=== PATIENT | male | born 1975 | race Two or more races ===

== ENCOUNTER 2019-03-29 14:14 | Emergency (ER) | payer MEDICAID ==
[~2019-03-29] VITALS: Ht 180.3 cm; Wt 97.5 kg
[2019-03-29] MEDS ORDERED: SODIUM CHLORIDE 0.9% 1,000 ML IVB ONE (14:53)
[2019-03-29 15:30] LABS: Basophils # (auto) 0.1 uL; Basophils % (auto) 0.7 % (0.0-2.0); Eosinophils # (auto) 0.4 uL; Eosinophils % (auto) 5.5 % (0.0-7.0); Hematocrit 45.4 % (41.0-53.0); Hemoglobin 15.2 g/dL (13.5-17.5); Lymphocytes # (auto) 2.2 uL; Lymphocytes % (auto) 29.1 % (10.0-50.0); Mean Corpuscular Hemoglobin 32.2 pg (28.0-32.0); Mean Corpuscular Hgb Conc. 33.6 g/dL (32.0-36.0); Monocytes # (auto) 0.5 uL; Monocytes % (auto) 7.2 % (0.0-12.0); Neutrophils # (auto) 4.3 uL; Neutrophils % (auto) 57.5 % (37.0-80.0); Nucleated Red Blood Cells % 0.1 %; Platelet Count (auto) 234 10^3/uL (140-450); Red Blood Cells 4.73 10^6/uL (4.5-5.90); Red Cell Distribution Width 13.3 % (11.8-14.3); White Blood Cell 7.5 10^3/uL (4.4-10.8)
[2019-03-29 15:53] LABS: Potassium 3.4 mmol/L (3.5-5.1)
[2019-03-29 15:54] LABS: INR < 0.93 (0.9-1.15); Partial Thromboplastin Time 22.3 sec (23.64-32.05)
[2019-03-29 16:03] LABS: Albumin 3.7 g/dL (3.4-5.0); BUN/Creatinine Ratio 20.4; Bilirubin, Direct 0.1 mg/dL (0-0.2); Bilirubin, Total 0.4 mg/dL (0.2-1.0); Calcium 8.5 mg/dL (8.5-10.1); Magnesium 2.4 mg/dL (1.6-2.6); Total Protein 7.4 g/dL (6.4-8.2)
[2019-03-29 16:10] LABS: Salicylate 1.7 mg/dL (2.8-20.0)
[2019-03-29 16:14] LABS: Acetaminophen < 2.0 ug/mL (10-30)
[2019-03-29 17:00] VITALS: BP 131/96
[2019-03-29] MEDS ORDERED: POTASSIUM CHL 20 Meq TABLET PO ONE (17:15)
[2019-03-29 17:59] LABS: Urine Bacteria NONE SEEN /hpf (None Seen); Urine Blood Negative /uL (Negative); Urine Hyaline Cast FEW /lpf (0 - 2); Urine Mucus FEW (None Seen); Urine WBC 1 /hpf (0 - 3)
[2019-03-29 19:08] LABS: Amphetamine Screen, Urine POSITIVE (NEGATIVE); Barbiturate Scree,Urine NEGATIVE (NEGATIVE); Benzodiazephine Screen, Urine NEGATIVE (NEGATIVE); Cannabinoid Screen, Urine NEGATIVE (NEGATIVE); Cocaine Screen, Urine NEGATIVE (NEGATIVE); Opiate Scree,Urine NEGATIVE (NEGATIVE); Phencyclidine Screen, Urine POSITIVE (NEGATIVE)
== END 2019-03-29 19:00 | disposition home or self-care (01) ==
LOC: ER 14:14 → EDBD 14:14 → ER 19:00
DX: F15.10 Other stimulant abuse, uncomplicated (principal); F12.10 Cannabis abuse, uncomplicated; F10.10 Alcohol abuse, uncomplicated; E87.6 Hypokalemia; F17.210 Nicotine dependence, cigarettes, uncomplicated; Y90.9 Presence of alcohol in blood, level not specified
CPT/HCPCS: 36415; 70450; 71045; 80053; 80076; 80307; 80320; 80329; 81001; 82550; 83735; 85025; 85610; 85730; 93005; 94761

== ENCOUNTER 2019-07-01 21:01 | Emergency (ER) | payer SELFPAY ==
[~2019-07-01] VITALS: Ht 180.3 cm; Wt 90.7 kg
[2019-07-01 21:08] VITALS: BP 131/89
== END 2019-07-01 21:19 ==
LOC: ER 21:05
DX: Z02.89 Encounter for other administrative examinations (principal); F17.210 Nicotine dependence, cigarettes, uncomplicated; F12.10 Cannabis abuse, uncomplicated; F15.10 Other stimulant abuse, uncomplicated

== ENCOUNTER 2020-12-28 10:31 | Emergency (ER) | payer MEDICAID | END 2020-12-28 10:59 | disposition left against medical advice (07) | LOC: ER 10:31 | DX: F41.9 Anxiety disorder, unspecified (principal); F17.210 Nicotine dependence, cigarettes, uncomplicated ==

== ENCOUNTER 2021-01-15 02:45 | Emergency (ER) | payer MEDICAID ==
[~2021-01-15] VITALS: Ht 185.4 cm; Wt 102.1 kg
[2021-01-15 06:03] VITALS: BP 140/82
== END 2021-01-15 04:59 | disposition home or self-care (01) ==
LOC: ER 02:45 → EDBD 02:45 → ER 04:59
DX: F10.121 Alcohol abuse with intoxication delirium (principal); F17.210 Nicotine dependence, cigarettes, uncomplicated; Y90.0 Blood alcohol level of less than 20 mg/100 ml
CPT/HCPCS: 36415; 80320

== ENCOUNTER 2021-02-13 22:32 | Emergency (ER) | payer MEDICAID ==
[~2021-02-13] VITALS: Ht 180.3 cm; Wt 83.9 kg
[2021-02-13 23:06] VITALS: BP 100/67
[2021-02-14] MEDS ORDERED: cefTRIAXone SOD 1,000 MG VL IM ONE (02:00)
[2021-02-14] MEDS ORDERED: KETOROLAC TROMETH 60MG/2ML VIAL IM ONE (02:00)
== END 2021-02-14 02:55 | disposition home or self-care (01) ==
LOC: ER 22:32
DX: S62.112A Displaced fracture of triquetrum [cuneiform] bone, left wrist, initial encounter for closed fracture (principal); S51.812A Laceration without foreign body of left forearm, initial encounter; L03.114 Cellulitis of left upper limb; F17.210 Nicotine dependence, cigarettes, uncomplicated; Z59.0 Homelessness; X58.XXXA Exposure to other specified factors, initial encounter; Y93.89 Activity, other specified; Y92.89 Other specified places as the place of occurrence of the external cause; Y99.8 Other external cause status
CPT/HCPCS: 73200; 96372; 99284; J0696; J1885

== ENCOUNTER → 2022-12-19 | Emergency (ER) | payer MEDICAID ==
[~2022-12-19] VITALS: Ht 180.3 cm; Wt 80.0 kg
[2022-12-19 06:14] VITALS: BP 138/88
== END | disposition left against medical advice (07) ==
LOC: ER 06:14
DX: M79.646 Pain in unspecified finger(s) (principal); Z53.21 Procedure and treatment not carried out due to patient leaving prior to being seen by health care provider

== ENCOUNTER 2023-04-23 22:27 | Emergency (ER) | payer MEDICAID ==
[~2023-04-23] VITALS: Ht 180.3 cm; Wt 77.0 kg
[2023-04-23] MEDS ORDERED: ONDANSETRON HCL 4 MG/2 ML VIAL IV ONE (23:30)
[2023-04-23 23:46] VITALS: TEMP 98
[2023-04-24 02:16] LABS: Basophils # (auto) 0.1 10 ^3/uL (0-0.2); Basophils % (auto) 0.8 % (0.0-2.0); Eosinophils # (auto) 0.1 10 ^3/uL (0-0.8); Hematocrit 44.2 % (41.0-53.0); Hemoglobin 14.5 g/dL (13.5-17.5); Lymphocytes # (auto) 1.1 10 ^3/uL (0.4-5.4); Lymphocytes % (auto) 9.1 % (10.0-50.0); Mean Corpuscular Hemoglobin 31.5 pg (28.0-32.0); Mean Corpuscular Hgb Conc. 32.8 g/dL (32.0-36.0); Mean Corpuscular Volume 96.3 fL (80.0-100.0); Monocytes # (auto) 0.4 10 ^3/uL (0-1.3); Monocytes % (auto) 3.2 % (0.0-12.0); Neutrophils # (auto) 10.3 10 ^3/uL (1.6-8.6); Neutrophils % (auto) 85.9 % (37.0-80.0); Nucleated Red Blood Cells % 0.1 %; Red Blood Cells 4.59 10^6/uL (4.5-5.90); Red Cell Distribution Width 14.3 % (11.8-14.3)
[2023-04-24 02:35] LABS: Alanine Aminotransferase 26 U/L (7-40); Albumin 4.2 g/dL (3.2-4.8); Alkaline Phosphatase 74 U/L (46-116); Anion Gap 7 (5-15); Aspartate Aminotransferase 27 U/L (13-40); BUN/Creatinine Ratio 12.9 (10.0-20.0); Bilirubin, Total 0.4 mg/dL (0.2-1.0); Blood Urea Nitrogen 13 mg/dL (9-23); Calcium 9.1 mg/dL (8.7-10.4); Carbon Dioxide 25 mmol/L (20-30); Chloride 109 mmol/L (98-107); Glucose 95 mg/dL (74-106); Sodium 141 mmol/L (136-145); Total Protein 6.9 g/dL (5.7-8.2)
[2023-04-24] MEDS ORDERED: NALO4SPR2 (04:55)
[2023-04-24 05:18] VITALS: BP 126/78; PULSE 79; RESP 17; O2SAT 98
== END 2023-04-24 05:34 | disposition home or self-care (01) ==
LOC: EDBD 22:27 → ER 22:27
DX: S62.397A Other fracture of fifth metacarpal bone, left hand, initial encounter for closed fracture (principal); T40.411A Poisoning by fentanyl or fentanyl analogs, accidental (unintentional), initial encounter; F17.210 Nicotine dependence, cigarettes, uncomplicated; F10.90 Alcohol use, unspecified, uncomplicated; F15.90 Other stimulant use, unspecified, uncomplicated; W05.1XXA Fall from non-moving nonmotorized scooter, initial encounter; Y93.89 Activity, other specified; Y92.89 Other specified places as the place of occurrence of the external cause; Y99.8 Other external cause status; Y90.0 Blood alcohol level of less than 20 mg/100 ml
CPT/HCPCS: 36415; 70450; 71045; 73130; 80053; 84484; 85025; 93005; 96374; 99285; J2405

== ENCOUNTER 2024-08-26 18:45 | Emergency (ER) | payer MEDICAID ==
[~2024-08-26] VITALS: Ht 180.3 cm; Wt 101.2 kg
[~2024-08-26 18:45] MED LIST: NALO4SPR2
--- NOTE | 2024-08-26 19:17 | ED.PDOC ---
History of Present Illness HPI Comments 49 y/o M with PMHX of HTN and HLD presents to the ED for CC of withdrawals. Patient states, that he believes he might be experiencing a withdrawal episode from alcohol and methamphetamines. Patient relays that the last time he consumed alcohol and illicit street drugs was today (08/26/24). Patient comments on having symptoms of nausea, tremors, and shortness of breath. Patient denies any known allergies. Patient denies suicidal ideation, homicidal ideation, auditory hallucinations, or visual hallucinations. No new symptoms or modifying factors at this time. Time Seen by MD: 19:00 Primary Care Provider: None Reviewed Notes: Nurses Notes, Medications, Allergies Allergies: Coded Allergies: NO KNOWN ALLERGIES (Unverified , 07/01/19) Home Meds Active Scripts Ondansetron Odt 4MG Tab (ZOFRAN PO) 4 Mg Tb, 4 MG PO Q8HP PRN for 5 Days, #15 TAB ODT TAB-DISSOLVE IN MOUTH, THEN SWALLOW Prov:DARRIUS BHATT MD 08/26/24 Naloxone HCl (Narcan) 4 Mg/0.1 Ml Spr, 4 MG NA DAILY PRN for 4 Days, #4 SPRAY 2 Refills Prov:JULIANA QUINONEZ DO 04/24/23 Information Source: Patient Mode of Arrival: Ambulatory Severity: Mild Timing: Hours Duration: Since onset Prehospital treatment: None Past Medical History PAST MEDICAL HISTORY: Denies Surgical History: Denies all surgeries Family History Family History: Unknown Social History Smoker: Cigarettes, Less Than 1 Pack/Day Alcohol: Heavy, Pt Confused Drugs: Marijuana, Methamphetamine, Other (PCP) Lives In: Home, Unobtainable Constitutional: denies: chills, diaphoresis, fatigue, fever, malaise, sweats, weakness, others EENTM: denies: blurred vision, double vision, ear bleeding, ear discharge, ear drainage, ear pain, ear ringing, eye pain, eye redness, hearing loss, mouth pain, mouth swelling, nasal discharge, nose bleeding, nose congestion, nose pain, photophobia, tearing, throat pain, throat swelling, voice changes, others Respiratory: reports: shortness of breath; denies: cough, hemoptysis, orthopnea, SOB at rest, SOB with excertion, stridor, wheezing, others Cardiovascular: denies: chest pain, dizzy spells, diaphoresis, Dyspnea on exertion, edema, irregular heart beat, left arm pain, lightheadedness, palpitations, PND, syncope, others Gastrointestinal: reports: nausea; denies: abdomen distended, abdominal pain, blood streaked bowels, constipated, diarrhea, dysphagia, difficulty swallowing, hematemesis, melena, poor appetite, poor fluid intake, rectal bleeding, rectal pain, vomiting, others Genitourinary: denies: burning, dysuria, flank pain, frequency, hematuria, incontinence, penile discharge, penile sore, pain, testicle pain, testicle swelling, urgency, others Neurological: reports: tremors; denies: dizziness, fainting, headache, left sided numbness, left sided weakness, numbness, paresthesia, pre-existing deficit, right sided numbness, right sided weakness, seizure, speech problems, tingling, weakness, others Musculoskeletal: denies: back pain, gout, joint pain, joint swelling, muscle pain, muscle stiffness, neck pain, others Integumetry: denies: bruises, change in color, change in hair/nails, dryness, laceration, lesions, lumps, rash, wounds, others Allergic/Immunocompromised: denies: Difficulty Healing, Frequent Infections, Hives, Itching, others Hematologic/Lymphatic: denies: anemia, blood clots, easy bleeding, easy bruising, swollen glands, others Endocrine: denies: excessive hunger, excessive sweating, excessive thirst, excessive urination, flushing, intolerance to cold, intolerance to heat, unexp lained weight gain, unexplained weight loss, others Psychiatric: denies: anxiety, bipolar disorder, depression, hopeless, panic disorder, schizophrenia, sleepless, suicidal, others All Other Systems: Reviewed and Negative Physical Exam General Appearance: No Apparent Distress HEENT: Normal ENT Inspection, Pharynx Normal, TMs Normal Neck: Full Range of Motion, Non-Tender, Normal, Normal Inspection Respiratory: Chest Non-Tender, Lungs Clear, No Accessory Muscle Use, No Respiratory Distress, Normal Breath Sounds Cardiovascular: No Edema, No JVD, No Murmur, No Gallop, Normal Peripheral Pulses, Regular Rate/Rhythm Breast Exam: Deferred Gastrointestinal: No Organomegaly, Non Tender, No Pulsatile Mass, Normal Bowel Sounds, Soft Genitalia: Deferred Pelvic: Deferred Rectal: Deferred Extremities: No calf tenderness, Normal capillary refill, Normal inspection, Normal range of motion, Non-tender, No pedal edema Musculoskeletal : Apperance: Normal Neurologic: Alert, primary montessori teacher II-XII nml as Tested, No Motor Deficits, Normal Affect, Normal Mood, No Sensory Deficits Cerebellar Function: Normal Reflexes: Normal Skin: Dry, Normal Color, Warm Lymphatic: No Adenopathy Was a procedure done? Was a procedure done?: No Differential Dx Considerations may include: ILLICIT DRUG WITHDRAWAL X-Ray, Labs, Meds, VS Vital Signs Date Time Temp Pulse Resp B/P (MAP) Pulse Ox O2 Delivery O2 Flow Rate FiO2 08/26/24 19:09 98.0 102 18 147/87 (107) 97 Lab Test 08/26/24 19:18 08/26/24 19:08 Range/Units White Blood Count 10.4 4.4-10.8 10^3/uL Red Blood Count 4.88 4.5-5.90 10^6/uL Hemoglobin 15.3 13.5-17.5 g/dL Hematocrit 45.5 41.0-53.0 % Mean Corpuscular Volume 93.3 80.0-100.0 fL Mean Corpuscular Hemoglobin 31.5 28.0-32.0 pg Mean Corpuscular Hemoglobin Concent 33.7 32.0-36.0 g/dL Red Cell Distribution Width 13.9 11.8-14.3 % Platelet Count 315 140-450 10^3/uL Mean Platelet Volume 6.9 6.9-10.8 fL Neutrophils (%) (Auto) 62.8 37.0-80.0 % Lymphocytes (%) (Auto) 24.8 10.0-50.0 % Monocytes (%) (Auto) 9.9 0.0-12.0 % Eosinophils (%) (Auto) 1.3 0.0-7.0 % Basophils (%) (Auto) 1.2 0.0-2.0 % Neutrophils # (Auto) 6.5 1.6-8.6 10 ^3/uL Lymphocytes # (Auto) 2.6 0.4-5.4 10 ^3/uL Monocytes # (Auto) 1.0 0-1.3 10 ^3/uL Eosinophils # (Auto) 0.1 0-0.8 10 ^3/uL Basophils # (Auto) 0.1 0-0.2 10 ^3/uL Nucleated Red Blood Cells 0.2 % Sodium Level 138 136-145 mmol/L Potassium Level 4.6 3.5-5.1 mmol/L Chloride Level 101 98-107 mmol/L Carbon Dioxide Level 25 20-31 mmol/L Anion Gap 12 5-15 Blood Urea Nitrogen 22 9-23 mg/dL Creatinine 1.17 0.700-1.30 mg/dL Glomerular Filtration Rate Calc 75 >90 mL/min BUN/Creatinine Ratio 18.8 10.0-20.0 Serum Glucose 70 L 74-106 mg/dL Calcium Level 10.3 8.7-10.4 mg/dL Plasma/Serum Blood Alcohol 3.7 <10 mg/dL Urine Opiates Screen Neg NEGATIVE Urine Fentanyl Screen Neg NEGATIVE Urine Barbiturates Screen Neg NEGATIVE Urine Phencyclidine Screen Pos NEGATIVE Urine Amphetamines Screen Pos NEGATIVE Urine Benzodiazepines Screen Neg NEGATIVE Urine Cocaine Screen Pos NEGATIVE Urine Cannabinoids Screen Neg NEGATIVE The urine tox is positive for PCP, cocaine and methamphetamines The CBC and chemistry panel are within normal limits The patient was being discharged and will follow up with the primary care doctor The patient will return to the emergency department's condition worsens. Time of 1ST Reevaluation: 19:30 Reevaluation 1ST: Unchanged Patient Education/Counseling: Diagnosis, Treatment, Prognosis, Need For Follow Up Family Education/Counseling: No Family Present Departure 1 Departure Time of Disposition: 21:28 Impression: Primary Impression: Polysubstance abuse Additional Impression: Alcohol abuse Disposition: 01 HOME / SELF CARE / HOMELESS Condition: Fair e-Prescriptions Ondansetron Odt 4MG Tab (ZOFRAN PO) 4 Mg Tb 4 MG PO Q8HP PRN for 5 Days, #15 TAB ODT TAB-DISSOLVE IN MOUTH, THEN SWALLOW Prov: DARRIUS BHATT MD 08/26/24 Discharged With: Self Critical Care Note Critical Care Time?: No Stability Stability form required: No Heart Score Heart Score: Heart Score Response (Comments) Value History N/A 0 EKG N/A 0 Age N/A 0 Risk Factors N/A 0 Troponin N/A 0 Total 0 I personally scribed for DARRIUS BHATT MD ([email or web address]) on 08/26/24 at 19:17. Electronically submitted by Asiya Chacko [email or web address]). DARRIUS BHATT MD Aug 26, 2024 19:17
[2024-08-26 19:32] LABS: Basophils # (auto) 0.1 10 ^3/uL (0-0.2); Basophils % (auto) 1.2 % (0.0-2.0); Eosinophils # (auto) 0.1 10 ^3/uL (0-0.8); Eosinophils % (auto) 1.3 % (0.0-7.0); Hematocrit 45.5 % (41.0-53.0); Hemoglobin 15.3 g/dL (13.5-17.5); Lymphocytes # (auto) 2.6 10 ^3/uL (0.4-5.4); Lymphocytes % (auto) 24.8 % (10.0-50.0); Mean Corpuscular Hemoglobin 31.5 pg (28.0-32.0); Mean Corpuscular Hgb Conc. 33.7 g/dL (32.0-36.0); Mean Corpuscular Volume 93.3 fL (80.0-100.0); Monocytes % (auto) 9.9 % (0.0-12.0); Neutrophils # (auto) 6.5 10 ^3/uL (1.6-8.6); Neutrophils % (auto) 62.8 % (37.0-80.0); Nucleated Red Blood Cells % 0.2 %; Platelet Count (auto) 315 10^3/uL (140-450); Red Blood Cells 4.88 10^6/uL (4.5-5.90); Red Cell Distribution Width 13.9 % (11.8-14.3); White Blood Cell 10.4 10^3/uL (4.4-10.8)
[2024-08-26 19:44] LABS: Chloride 101 mmol/L (98-107); Potassium 4.6 mmol/L (3.5-5.1); Sodium 138 mmol/L (136-145)
[2024-08-26 19:45] LABS: Anion Gap 12 (5-15); Carbon Dioxide 25 mmol/L (20-31)
[2024-08-26 19:46] LABS: Calcium 10.3 mg/dL (8.7-10.4)
[2024-08-26 19:50] LABS: BUN/Creatinine Ratio 18.8 (10.0-20.0); Blood Urea Nitrogen 22 mg/dL (9-23)
[2024-08-26 19:51] LABS: Blood Alcohol 3.7 mg/dL (<10)
[2024-08-26 19:58] LABS: Glucose 70 mg/dL (74-106)
[2024-08-26 20:23] LABS: Cannabinoid Screen, Urine Neg (NEGATIVE)
[2024-08-26 20:27] LABS: Amphetamine Screen, Urine Pos (NEGATIVE); Barbiturate Scree,Urine Neg (NEGATIVE); Benzodiazephine Screen, Urine Neg (NEGATIVE); Cocaine Screen, Urine Pos (NEGATIVE); Opiate Scree,Urine Neg (NEGATIVE); Phencyclidine Screen, Urine Pos (NEGATIVE)
[2024-08-26] MEDS ORDERED: ZOFR4T PO (21:27)
[2024-08-27] MEDS: SODIUM CHLORIDE 0.9% 1,000 ML IV ONE (00:09)
[2024-08-27] MEDS: ONDANSETRON HCL 4 MG/2 ML VIAL IV ONE (00:10)
[2024-08-27 02:10] VITALS: BP 140/76; PULSE 85; RESP 18; TEMP 98.1; O2SAT 95
== END 2024-08-27 02:25 | disposition home or self-care (01) ==
LOC: ER 18:45
DX: F19.10 Other psychoactive substance abuse, uncomplicated (principal); F10.10 Alcohol abuse, uncomplicated; I10 Essential (primary) hypertension; E78.5 Hyperlipidemia, unspecified; F17.210 Nicotine dependence, cigarettes, uncomplicated; Z79.899 Other long term (current) drug therapy
CPT/HCPCS: 36415; 80048; 80307; 80320; 85025; 96361; 96374; 99283; J2405; J7030

== ENCOUNTER 2024-09-19 23:09 | Emergency (ER) | payer MEDICAID ==
[~2024-09-19] VITALS: Ht 180.3 cm; Wt 98.9 kg
[~2024-09-19 23:09] MED LIST changes: +ZOFR4T PO
--- NOTE | 2024-09-20 00:35 | DVH ---
XY R ANKLE 3 VIEW, INDICATION: injury/pain TECHNICAL DATA: Multiple views of the right ankle and tib fib COMPARISON: None Findings/ IMPRESSION: Comminuted fracture involving the fibular neck. Soft tissue edema around the ankle joint.
[2024-09-20] MEDS: HYDROcodone-ACET 5/325MG TAB PO ONE (02:23)
--- NOTE | 2024-09-20 02:38 | ED.PDOC ---
Back pain HPI HPI Comments PT STATES HE TWISTED HIS RIGHT TIB/FIB IN A DITCH, CAUSING HIM TO FALL. C/O RIGHT TIB/FIB, ANKLE PAIN. AND LEFT THUMB PAIN DENIES ANY OTHER PAIN OR INJURY. DENIES NUMBNESS, WEAKNESS, CHEST PAIN, SHORTNESS BREATH, DIFFICULTY BREATHING, ABDOMINAL PAIN, NAUSEA OR VOMITING Chief Complaint: Lower Extremity Time Seen by MD: 23:51 Primary Care Provider: gurpreet Reviewed Notes: Nurses Notes, Medications, Allergies Allergies: Coded Allergies: NO KNOWN ALLERGIES (Unverified , 07/01/19) Home Meds Active Scripts Ibuprofen Micronized (Ibuprofen) 800 Mg Tab, 800 MG PO TID for 7 Days, #21 TAB Prov:MARY PHILIPPE 09/20/24 Ondansetron Odt 4MG Tab (ZOFRAN PO) 4 Mg Tb, 4 MG PO Q8HP PRN for 5 Days, #15 TAB ODT TAB-DISSOLVE IN MOUTH, THEN SWALLOW Prov:DARRIUS BHATT MD 08/26/24 Naloxone HCl (Narcan) 4 Mg/0.1 Ml Spr, 4 MG NA DAILY PRN for 4 Days, #4 SPRAY 2 Refills Prov:JULIANA QUINONEZ DO 04/24/23 Information Source: Patient Mode of Arrival: Wheelchair Past Medical History PAST MEDICAL HISTORY: Denies Surgical History: Denies all surgeries Family History Family History: Reviewed,noncontributory to illness, Unknown Social History Smoker: Cigarettes, Less Than 1 Pack/Day Alcohol: Heavy, Pt Confused Drugs: Marijuana, Methamphetamine, Other Lives In: Home, Unobtainable Constitutional: denies: chills, diaphoresis, fatigue, fever, malaise, sweats, weakness, others EENTM: denies: blurred vision, double vision, ear bleeding, ear discharge, ear drainage, ear pain, ear ringing, eye pain, eye redness, hearing loss, mouth pain, mouth swelling, nasal discharge, nose bleeding, nose congestion, nose pain, photophobia, tearing, throat pain, throat swelling, voice changes, others Respiratory: denies: cough, hemoptysis, orthopnea, SOB at rest, shortness of breath, SOB with excertion, stridor, wheezing, others Cardiovascular: denies: chest pain, dizzy spells, diaphoresis, Dyspnea on exertion, edema, irregular heart beat, left arm pain, lightheadedness, palpitations, PND, syncope, others Gastrointestinal: denies: abdomen distended, abdominal pain, blood streaked bowels, constipated, diarrhea, dysphagia, difficulty swallowing, hematemesis, melena, nausea, poor appetite, poor fluid intake, rectal bleeding, rectal pain, vomiting, others Genitourinary: denies: burning, dysuria, flank pain, frequency, hematuria, incontinence, penile discharge, penile sore, pain, testicle pain, testicle swelling, urgency, others Neurological: denies: dizziness, fainting, headache, left sided numbness, left sided weakness, numbness, paresthesia, pre-existing deficit, right sided numbn ess, right sided weakness, seizure, speech problems, tingling, tremors, weakness, others Musculoskeletal: reports: others (LEFT THUMB AND RIGHT LOWER LEG PAIN SWELLING); denies: back pain, gout, joint pain, joint swelling, muscle pain, muscle stiffness, neck pain Integumetry: denies: bruises, change in color, change in hair/nails, dryness, laceration, lesions, lumps, rash, wounds, others Allergic/Immunocompromised: denies: Difficulty Healing, Frequent Infections, Hives, Itching, others Hematologic/Lymphatic: denies: anemia, blood clots, easy bleeding, easy bruising, swollen glands, others Endocrine: denies: excessive hunger, excessive sweating, excessive thirst, excessive urination, flushing, intolerance to cold, intolerance to heat, unexplained weight gain, unexplained weight loss, others Psychiatric: denies: anxiety, bipolar disorder, depression, hopeless, panic disorder, schizophrenia, sleepless, suicidal, others Physical Exam General Appearance: No Apparent Distress, Normal HEENT: Pharynx Normal Neck: Full Range of Motion, Non-Tender Respiratory: Lungs Clear, No Respiratory Distress, Normal Breath Sounds Cardiovascular: No Edema, No JVD, No Murmur, No Gallop, Normal Peripheral Pulses, Regular Rate/Rhythm Breast Exam: Deferred Gastrointestinal: No Organomegaly, Non Tender, No Pulsatile Mass, Normal Bowel Sounds, Soft Genitalia: Deferred Pelvic: Deferred Rectal: Deferred Extremities: Normal capillary refill, Normal inspection, Normal range of motion, Non-tender, No pedal edema Musculoskeletal : Location: Right Extremity Location: Fibia (PROXIMAL FIBULA WITH MODERATE TENDERNESS AND NOTED MILD TO MODERATE EDEMA WITH ECCHYMOSIS NO NOTED LESIONS, LACERATIONS, ABRASIONS OR OPEN WOUNDS. STRENGTH SENSORY MOTION INTACT POSITIVE PEDAL PULSE. GOAL WITH MILD EDEMA STRENGTH SENSORY MOTION INTACT POSITIVE PEDAL PULSE NO NO MINERVA CREPITUS OR BONY PROMINENCE. RIGHT THUMB TRACE EDEMA WITHOUT LESIONS ABRASIONS OR LACERATIONS NO ECCHYMOSIS CAP REFILL LESS THAN 3 SECONDS STRENGTH SENSORY MOTION INTACT.) Apperance: Normal Neurologic: Alert, power tong operator II-XII nml as Tested, No Motor Deficits, Normal Affect, Normal Mood, No Sensory Deficits Cerebellar Function: Normal Reflexes: Normal Skin: Dry, Normal Color, Warm Lymphatic: No Adenopathy Was a procedure done? Was a procedure done?: No Back Pain Differential Dx Differential Diagnosis: Fracture, Musculoskeletal Pain X-Ray, Labs, Meds, VS Vital Signs Date Time Temp Pulse Resp B/P (MAP) Pulse Ox O2 Delivery O2 Flow Rate FiO2 09/19/24 23:30 97.5 114 18 157/87 (110) 97 97.5 09/19/24 23:30 Room Air 09/19/24 23:30 97.5 114 18 157/87 (110) 97 Current Medications Medications (Trade) Dose Ordered Sig/Valorie Route Start Time Stop Time Status Last Admin Acetaminophen/ Hydrocodone Bitart ([place] 5/325MG Tab) 2 tab ONCE ONCE PO 09/20/24 02:15 09/20/24 02:16 DC 09/20/24 02:23 X-Ray, Labs, Meds, VS Comment X-RAY RIGHT TIB-FIB SHOWS FIBULA FRACTURE NECK COMMINUTED. SOFT TISSUE SWELLING A MID THE ANKLE. LEFT HAND THUMB NO ACUTE FINDINGS NOTED OR OSSEOUS LESIONS. SCRIPT IBUPROFEN 800 MG. FOLLOW-UP WITH PCP IN 1 TO 2 DAYS REFERRAL TO [facility]THO. BRACE ON USE CRUTCHES INSTRUCTED UNTIL SEEN BY ORTHOPEDIC SURGEON. TAKE MEDICATIONS PRESCRIBED. RETURN TO ED FOR ANY NEW OR WORSENING SYMPTOMS. Time of 1ST Reevaluation: 04:33 Reevaluation 1ST: Improved Patient Education/Counseling: Diagnosis, Treatment, Prognosis, Need For Follow Up Family Education/Counseling: No Family Present Departure 1 Departure Time of Disposition: 02:39 Impression: Primary Impression: Fracture of neck of right fibula Qualified Codes: S82.831A - Other fracture of upper and lower end of right fibula, initial encounter for closed fracture Additional Impression: Contusion of left thumb without damage to nail Qualified Codes: S60.012A - Contusion of left thumb without damage to nail, initial encounter Disposition: HOME / SELF CARE / HOMELESS Condition: Stable e-Prescriptions Ibuprofen Micronized (Ibuprofen) 800 Mg Tab 800 MG PO TID for 7 Days, #21 TAB Prov: MARY PHILIPPE 09/20/24 Discharged With: Self Critical Care Note Critical Care Time?: No Stability Stability form required: No MARY PHILIPPE Sep 20, 2024 02:38
[2024-09-20] MEDS ORDERED: IBUP-1455 PO (02:49)
--- NOTE | 2024-09-20 04:16 | DVH ---
XY L HAND 3V XRAY, INDICATION: THUMB INJURY TECHNICAL DATA: Frontal, oblique and lateral views were obtained of the left hand. COMPARISON: XY L HAND 3V XRAY on DOS: 04/24/23 FINDINGS: No fracture is identified. Joint spaces are maintained. Alignment is anatomic. Soft tissues are withi n normal limits. IMPRESSION: 1. No acute fracture or dislocation of the left hand.
[2024-09-20 04:58] VITALS: BP 149/85; PULSE 93; RESP 18; TEMP 98.3; O2SAT 96
== END 2024-09-20 04:55 | disposition home or self-care (01) ==
LOC: ER 23:09
DX: S12.8XXA Fracture of other parts of neck, initial encounter (principal); S60.012A Contusion of left thumb without damage to nail, initial encounter; F17.210 Nicotine dependence, cigarettes, uncomplicated; F12.90 Cannabis use, unspecified, uncomplicated; F15.90 Other stimulant use, unspecified, uncomplicated; Z79.899 Other long term (current) drug therapy; W18.39XA Other fall on same level, initial encounter; Y93.89 Activity, other specified; Y92.89 Other specified places as the place of occurrence of the external cause; Y99.8 Other external cause status
CPT/HCPCS: 73130; 73590; 73610

== ENCOUNTER 2024-09-23 20:52 | Emergency (ER) | payer MEDICAID ==
[~2024-09-23] VITALS: Ht 180.3 cm; Wt 101.2 kg
[~2024-09-23 20:52] MED LIST changes: +IBUP-1455 PO
[2024-09-23 20:57] VITALS: BP 134/77; PULSE 106; RESP 18; O2SAT 94
--- NOTE | 2024-09-24 00:24 | ED.PDOC ---
Musculoskeletal HPI Comments 49 YEAR OLD MALE PRESENTS TO ER WITH COMPLAINTS OF RIGHT LEG PAIN X 5 DAYS. PATIENT PRESENTS TO ER VIA EMS AND WAS DIAGNOSED WITH A RIGHT FIBULA FRACTURE/RIGHT ANKLE SPRAIN IN ER HERE 5 DAYS AGO AND PRESENTS TO ER TODAY FOR WORSENING RIGHT LEG PAIN/SWELLING. HE RATES HIS CURRENT PAIN A 7/10 TO REGION OF RIGHT UPPER FIBULA/RIGHT ANKLE WITH RADIATION DIFFUSE TO RIGHT LEG. PATIENT STATES HE IS HOMELESS, WITH PMH OF METHAMPHETAMINE/ETOH ABUSE AND HAS NOT CONTACTED HIS PCP OR ORTHOPEDICS YET FOR FOLLOW-UP WITH. HE PRESENTS TO ER WITH RIGHT KNEE IMMOBILIZER AND CRUTCHES IN NO DISTRESS. DENIES FEVER, SHORTNESS OF BREATH, CALF PAIN, NUMBNESS/TINGLING, HIP PAIN OR ANY FURTHER SYMPTOMS/COMPLAINTS Chief Complaint: Lower Extremity Time Seen by MD: 21:20 Primary Care Provider: gurpreet Reviewed Notes: Nurses Notes, Medications, Allergies Allergies: Coded Allergies: NO KNOWN ALLERGIES (Unverified , 07/01/19) Home Meds Active Scripts Ibuprofen Micronized (Ibuprofen) 800 Mg Tab, 800 MG PO TID for 7 Days, #21 TAB Prov:MARY PHILIPPE 09/20/24 Ondansetron Odt 4MG Tab (ZOFRAN PO) 4 Mg Tb, 4 MG PO Q8HP PRN for 5 Days, #15 TAB ODT TAB-DISSOLVE IN MOUTH, THEN SWALLOW Prov:DARRIUS BHATT MD 08/26/24 Naloxone HCl (Narcan) 4 Mg/0.1 Ml Spr, 4 MG NA DAILY PRN for 4 Days, #4 SPRAY 2 Refills Prov:JULIANA QUINONEZ DO 04/24/23 Information Source: Patient Mode of Arrival: EMS Past Medical History Past Medical History (Other): RIGHT FIBULAR FRACTURE - 09/19/24 Surgical History: Denies all surgeries Family History Family History: Unknown Social History Smoker: Cigarettes, Less Than 1 Pack/Day Alcohol: Heavy Drugs: Marijuana, Methamphetamine Lives In: Home, Unobtainable Constitutional: denies: chills, diaphoresis, fatigue, fever, malaise, sweats, weakness, others EENTM: denies: blurred vision, double vision, ear bleeding, ear discharge, ear drainage, ear pain, ear ringing, eye pain, eye redness, hearing loss, mouth pain, mouth swelling, nasal discharge, nose bleeding, nose congestion, nose pain, photophobia, tearing, throat pain, throat swelling, voice changes, others Respiratory: denies: cough, hemoptysis, orthopnea, SOB at rest, shortness of breath, SOB with excertion, stridor, wheezing, others Cardiovascular: denies: chest pain, dizzy spells, diaphoresis, Dyspnea on exertion, edema, irregular heart beat, left arm pain, lightheadedness, palpitations, PND, syncope, others Gastrointestinal: denies: abdomen distended, abdominal pain, blood streaked bowels, constipated, diarrhea, dysphagia, difficulty swallowing, hematemesis, melena, nausea, poor appetite, poor fluid intake, rectal bleeding, rectal pain, vomiting, others Genitourinary: denies: burning, dysuria, flank pain, frequency, hematuria, incontinence, penile discharge, penile sore, pain, testicle pain, testicle swelling, urgency, others Neurological: denies: dizziness, fainting, headache, left sided numbness, left sided weakness, numbness, paresthesia, pre-existing deficit, right sided numbness, right sided weakness, seizure, speech problems, tingling, tremors, weakness, others Musculoskeletal: reports: others ( STATED IN HPI) Integumetry: reports: others ( STATED IN HPI) Allergic/Immunocompromised: denies: Difficulty Healing, Frequent Infections, Hives, Itching, others Hematologic/Lymphatic: denies: anemia, blood clots, easy bleeding, easy bru ising, swollen glands, others Endocrine: denies: excessive hunger, excessive sweating, excessive thirst, e xcessive urination, flushing, intolerance to cold, intolerance to heat, unexplained weight gain, unexplained weight loss, others Psychiatric: denies: anxiety, bipolar disorder, depression, hopeless, panic disorder, schizophrenia, sleepless, suicidal, others Physical Exam General Appearance: No Apparent Distress HEENT: PERRL/EOMI Neck: Full Range of Motion, Non-Tender, Normal Respiratory: Chest Non-Tender, Lungs Clear, No Accessory Muscle Use, No Respiratory Distress, Normal Breath Sounds Cardiovascular: No Murmur, No Gallop, Regular Rate/Rhythm Breast Exam: Deferred Gastrointestinal: NOT DONE Genitalia: Deferred Pelvic: Deferred Rectal: Deferred Extremities: Calf tenderness (SLIGHT TTP TO BILATERAL CALVES NOTED.), Leg edema (NOTED TO RIGHT LOWER EXTREMITY), Normal capillary refill Musculoskeletal : Extremity Location: Knee (TTP/MODERATE SWELLING NOTED TO RIGHT PROXIMAL FIBULA AND TO RIGHT POSTERIOR MALLEOLUS. PATIENT UNABLE TO BEAR WEIGHT ON RIGHT LEG DUE TO PAIN LOCALIZED TO RIGHT PROXIMAL FIBULA AND TO POSTERIOR MALLEOLUS. PULSES INTACT) Neurologic: Alert, Normal Affect, Normal Mood, No Sensory Deficits Cerebellar Function: Normal Reflexes: Normal Skin: Dry, Normal Color, Warm Peripheral Pulses: 2+ femoral (R), 2+ femoral (L), 2+ dorsalis pedis (R), 2+ dorsalis pedis (L) Lymphatic: No Adenopathy Was a procedure done? Was a procedure done?: No Sedation Sedation?: No Differential Diagnosis EXT Differential Diagnosis: Dislocation, Laceration, Neurovascular injury X-Ray, Labs, Meds, VS Vital Signs Date Time Temp Pulse Resp B/P (MAP) Pulse Ox O2 Delivery O2 Flow Rate FiO2 09/23/24 20:57 99.0 106 18 134/77 (96) 94 Lab Test 09/24/24 00:23 Range/Units White Blood Count 8.8 4.4-10.8 10^3/uL Red Blood Count 4.35 L 4.5-5.90 10^6/uL Hemoglobin 13.2 L 13.5-17.5 g/dL Hematocrit 40.8 L 41.0-53.0 % Mean Corpuscular Volume 93.8 80.0-100.0 fL Mean Corpuscular Hemoglobin 30.5 28.0-32.0 pg Mean Corpuscular Hemoglobin Concent 32.5 32.0-36.0 g/dL Red Cell Distribution Width 14.0 11.8-14.3 % Platelet Count 255 140-450 10^3/uL Mean Platelet Volume 7.9 6.9-10.8 fL Neutrophils (%) (Auto) 46.2 37.0-80.0 % Lymphocytes (%) (Auto) 35.2 10.0-50.0 % Monocytes (%) (Auto) 10.9 0.0-12.0 % Eosinophils (%) (Auto) 6.7 0.0-7.0 % Basophils (%) (Auto) 1.0 0.0-2.0 % Neutrophils # (Auto) 4.1 1.6-8.6 10 ^3/uL Lymphocytes # (Auto) 3.1 0.4-5.4 10 ^3/uL Monocytes # (Auto) 1.0 0-1.3 10 ^3/uL Eosinophils # (Auto) 0.6 0-0.8 10 ^3/uL Basophils # (Auto) 0.1 0-0.2 10 ^3/uL Nucleated Red Blood Cells 0.1 % Prothrombin Time 9.9 9.3-11.8 sec Prothrombin Time INR 0.93 0.9-1.15 Activated Partial Thromboplast Time 28.7 24.5-34.5 SEC Sodium Level 140 136-145 mmol/L Potassium Level 3.4 L 3.5-5.1 mmol/L Chloride Level 106 98-107 mmol/L Carbon Dioxide Level 23 20-31 mmol/L Anion Gap 11 5-15 Blood Urea Nitrogen 20 9-23 mg/dL Creatinine 1.03 0.700-1.30 mg/dL Glomerular Filtration Rate Calc 88 >90 mL/min BUN/Creatinine Ratio 19.4 10.0-20.0 Serum Glucose 86 74-106 mg/dL Calcium Level 9.5 8.7-10.4 mg/dL Plasma/Serum Blood Alcohol 87.1 H <10 mg/dL PATIENT: JONATHAN LOPEZYACCT: [id number]: [id number] : 1975 LOC: ER ROOM / BED: / AGE / SEX: 49 / M ADM STATUS: REG ER SERVICE [id number] ORDERING PHYSICIAN: JOHANA MONROE PROCEDURE(s): BLDVT - BiLat Lower DVT REASON: BILATERAL LEG PAIN ORDER NUMBER(s): [id number], ACCESSION NUMBER(s): [id number] Bilateral lower extremity venous duplex Clinical History: BILATERAL LEG PAIN Comparison: None Technique: Duplex Doppler evaluation of the deep venous systems of both lower extremities from the common femoral veins to the popliteal veins including color Doppler and spectral/pulsed waveform analysis was performed. Findings: RIGHT SIDE: The common femoral vein demonstrates appropriate compressibility and waveform variability. There is compressibility/patency of the great saphenous vein at the proximal thigh. The femoral vein demonstrates appropriate compressibility and waveform variability. The deep femoral vein demonstrates appropriate compressibility and waveform variability. The popliteal vein demonstrates appropriate compressibility and waveform variability. Evidence of Donald's cyst in the right popliteal fossa measuring up to 6.2 x 1 cm. LEFT SIDE: The common femoral vein demonstrates appropriate compressibility and waveform variability. There is compressibility/patency of the great saphenous vein at the proximal thigh. The femoral vein demonstrates appropriate compressibility and waveform variability. The deep femoral vein demonstrates appropriate compressibility and waveform variability. The popliteal vein demonstrates appropriate compressibility and waveform variability. Evidence of Donald's cyst in the left popliteal fossa measuring up to 3.5 x 0.7 cm. Impression: No evidence of right or left femoropopliteal venous thrombosis. Bilateral popliteal fossa Donald's cysts. ATED BY: VJIAY FARLEY MD DICTATED DATE/TIME: 09/24/2440 SIGNED BY: VIJAY FARLEY MD SIGNED DATE/TIME: 09/24/2440 CC: PATIENT: ISHMAEL LOPEZ ACCT: [id number] UNIT: [id number] : 1975 LOC: ER ROOM / BED: / AGE / SEX: 49 / M ADM STATUS: REG ER SERVICE ORDERING PHYSICIAN: JOHANA MONROE PROCEDURE(s): RTBFB - R TIB FIB XRAY REASON: RIGHT TIB/FIB PAIN ORDER NUMBER(s): [id number], ACCESSION NUMBER(s): [id number] EXAM: XY R TIB FIB XRAY CLINICAL INDICATION: RIGHT TIB/FIB PAIN TECHNIQUE: XY R TIB FIB XRAY Comparison: XY R TIB FIB XRAY on DOS: 09/20/24 FINDINGS/IMPRESSION: Displaced fractures of the fibular neck and posterior malleolus. ATED BY: DAR DUMAS DO DICTATED DATE/TIME: 09/24/24105 SIGNED BY: DAR DUMAS DO SIGNED DATE/TIME: 09/24/24105 CC: BILATERAL LOWER DVT ULTRASOUND REVIEWED RIGHT TIB-FIB X-RAY REVIEWED CBC REVIEWED WITHOUT ANY SIGNIFICANT ABNORMALITIES BMP REVIEWED WITHOUT ANY SIGNIFICANT ABNORMALITIES PT/PTT REVIEWED-NORMAL SERUM BLOOD ALCOHOL REVIEWED- 87.1 PATIENT NEUROVASCULARLY INTACT METHAMPHETAMINE/CANNABIS/SMOKING/ETOH CESSATION DISCUSSED AND ADVISED PATIENT PRESENTS WITH WORSENING RIGHT LEG PAIN/WORSENING RIGHT LEG EDEMA/INABILITY TO BEAR WEIGHT ON RIGHT LEG AND IS HOMELESS WITHOUT PROPER ORT HOPEDIC/PCP FOLLOW-UP PATIENT WILL BE PUT UP FOR ADMISSION ORDERS TO HOSPITALIST FOR PAIN CONTROL AND NEED FOR ORTHOPEDIC CONSULT PATIENT REFUSING ADMISSION AND STATES HE WOULD LIKE TO SIGN OUT AGAINST MEDICAL ADVICE SEVERAL ATTEMPTS WERE MADE TO CONVINCE PATIENT TO STAY FOR FURTHER EVALUATION/TREATMENT WITHOUT SUCCESS RISKS OF SIGNING OUT AMA WERE REVIEWED AND DISCUSSED WITH PATIENT IN FULL DETAILS INCLUDING RISK OF PARTIAL/PERMANENT DISABILITY, LIMB LOSS AND RISK OF . PATIENT ALERT AND ORIENTED X4 AND VERBALIZED UNDERSTANDING PATIENT SIGNED OUT AGAINST MEDICAL ADVICE Images Reviewed?: Images reviewed and evaluated by me Time of 1ST Reevaluation: 00:22 Reevaluation 1ST: N/A Time of 2ND Reevaluation: 01:45 Reevaluation 2ND: Unchanged Patient Education/Counseling: Diagnosis, Treatment, Prognosis, Need For Follow Up Family Education/Counseling: No Family Present Departure 1 Departure Time of Disposition: 01:45 Impression: Primary Impression: Right fibular fracture Qualified Codes: S82.831A - Other fracture of upper and lower end of right fibula, initial encounter for closed fracture Additional Impressions: Polysubstance abuse Ankle fracture, right Qualified Codes: S82.891A - Other fracture of right lower leg, initial encounter for closed fracture Donald cyst Qualified Codes: M71.20 - Synovial cyst of popliteal space [Donald], unspecified knee Disposition: 07 LEFT AGAINST MEDICAL ADVICE Condition: Serious Critical Care Note Critical Care Time?: No Stability Stability form required: No Heart Score Heart Score: Heart Score Response (Comments) Value History N/A 0 EKG N/A 0 Age N/A 0 Risk Factors N/A 0 Troponin N/A 0 Total 0 JOHANA MONROE Sep 24, 2024 00:24
--- NOTE | 2024-09-24 00:43 | DVH ---
Bilateral lower extremity venous duplex Clinical History: BILATERAL LEG PAIN Comparison: None Technique: Duplex Doppler evaluation of the deep venous systems of both lower extremities from the common femora l veins to the popliteal veins including color Doppler and spectral/pulsed waveform analysis was perf ormed. Findings: RIGHT SIDE: The common femoral vein demonstrates appropriate compressibility and waveform variability. There is compressibility/patency of the great saphenous vein at the proximal thigh. The femoral vein demonstrates appropriate compressibility and waveform variability. The deep femoral vein demonstrates appropriate compressibility and waveform variability. The popliteal vein demonstrates appropriate compressibility and waveform variability. Evidence of Donald's cyst in the right popliteal fossa measuring up to 6.2 x 1 cm. LEFT SIDE: The common femoral vein demonstrates appropriate compressibility and waveform variability. There is compressibility/patency of the great saphenous vein at the proximal thigh. The femoral vein demonstrates appropriate compressibility and waveform variability. The deep femoral vein demonstrates appropriate compressibility and waveform variability. The popliteal vein demonstrates appropriate compressibility and waveform variability. Evidence of Donald's cyst in the left popliteal fossa measuring up to 3.5 x 0.7 cm. Impression: No evidence of right or left femoropopliteal venous thrombosis. Bilateral popliteal fossa Donald's cysts.
[2024-09-24 00:48] LABS: Chloride 106 mmol/L (98-107); Sodium 140 mmol/L (136-145)
[2024-09-24 00:49] LABS: Anion Gap 11 (5-15); Calcium 9.5 mg/dL (8.7-10.4); Carbon Dioxide 23 mmol/L (20-31)
[2024-09-24 00:54] LABS: BUN/Creatinine Ratio 19.4 (10.0-20.0); Blood Urea Nitrogen 20 mg/dL (9-23); Glucose 86 mg/dL (74-106); Potassium 3.4 mmol/L (3.5-5.1)
[2024-09-24 00:58] LABS: INR 0.93 (0.9-1.15); Partial Thromboplastin Time 28.7 SEC (24.5-34.5); Prothrombin Time 9.9 sec (9.3-11.8)
--- NOTE | 2024-09-24 01:08 | DVH ---
EXAM: XY R TIB FIB XRAY CLINICAL INDICATION: RIGHT TIB/FIB PAIN TECHNIQUE: XY R TIB FIB XRAY Comparison: XY R TIB FIB XRAY on DOS: 09/20/24 FINDINGS/IMPRESSION: Displaced fractures of the fibular neck and posterior malleolus.
[2024-09-24 01:56] LABS: Basophils # (auto) 0.1 10 ^3/uL (0-0.2); Eosinophils # (auto) 0.6 10 ^3/uL (0-0.8); Eosinophils % (auto) 6.7 % (0.0-7.0); Hematocrit 40.8 % (41.0-53.0); Hemoglobin 13.2 g/dL (13.5-17.5); Lymphocytes # (auto) 3.1 10 ^3/uL (0.4-5.4); Lymphocytes % (auto) 35.2 % (10.0-50.0); Mean Corpuscular Hemoglobin 30.5 pg (28.0-32.0); Mean Corpuscular Hgb Conc. 32.5 g/dL (32.0-36.0); Mean Corpuscular Volume 93.8 fL (80.0-100.0); Monocytes % (auto) 10.9 % (0.0-12.0); Neutrophils # (auto) 4.1 10 ^3/uL (1.6-8.6); Neutrophils % (auto) 46.2 % (37.0-80.0); Nucleated Red Blood Cells % 0.1 %; Platelet Count (auto) 255 10^3/uL (140-450); Red Blood Cells 4.35 10^6/uL (4.5-5.90); White Blood Cell 8.8 10^3/uL (4.4-10.8)
== END 2024-09-24 01:47 | disposition left against medical advice (07) ==
LOC: EDBD 20:52 → ER 20:52
DX: S82.831A Other fracture of upper and lower end of right fibula, initial encounter for closed fracture (principal); F19.10 Other psychoactive substance abuse, uncomplicated; F17.210 Nicotine dependence, cigarettes, uncomplicated; F12.90 Cannabis use, unspecified, uncomplicated; F15.90 Other stimulant use, unspecified, uncomplicated; Z79.899 Other long term (current) drug therapy; X58.XXXA Exposure to other specified factors, initial encounter; Y93.89 Activity, other specified; Y92.89 Other specified places as the place of occurrence of the external cause; Y99.8 Other external cause status
CPT/HCPCS: 36415; 73590; 80048; 80320; 85025; 85610; 85730; 93970

== ENCOUNTER 2024-09-24 18:26 | Emergency (ER) | payer MEDICAID, OTHER | END 2024-09-24 18:56 | disposition left against medical advice (07) | LOC: ER 18:26 | DX: M79.669 Pain in unspecified lower leg (principal); Z53.21 Procedure and treatment not carried out due to patient leaving prior to being seen by health care provider ==

== ENCOUNTER 2024-09-24 19:35 | Inpatient (IN) | payer MEDICAID ==
[~2024-09-24] VITALS: Ht 180.3 cm; Wt 96.8 kg
--- NOTE | 2024-09-24 20:04 | ED.PDOC ---
Musculoskeletal HPI Comments 49 YEAR OLD MALE PRESENTS TO ER WITH COMPLAINTS OF RIGHT LEG PAIN X 6 DAYS. PATIENT PRESENTS TO ER 1 DAYS PRIOR AND WAS DIAGNOSED WITH A RIGHT FIBULA FRACTURE/RIGHT ANKLE SPRAIN IN ER HERE 5 DAYS AGO AND PRESENTS TO ER TODAY FOR WORSENING RIGHT LEG PAIN/SWELLING. HE RATES HIS CURRENT PAIN A 7/10 TO REGION OF RIGHT UPPER FIBULA/RIGHT ANKLE WITH RADIATION DIFFUSE TO RIGHT LEG. PATIENT STATES HE IS HOMELESS, WITH PMH OF METHAMPHETAMINE/ETOH ABUSE AND HAS NOT CONTACTED HIS PCP OR ORTHOPEDICS YET FOR FOLLOW-UP WITH. HE PRESENTS TO ER WITH RIGHT KNEE IMMOBILIZER AND CRUTCHES IN NO DISTRESS. PT WAS ADMITTED 1 DAYS PRIOR BUT STATES HE HAD TO LEAVE TO DO SOME THINGS . PT STATES HE LEFT TO USE RECREATION DRUGS INCLUDING METHAMPHETAMINES, PCP AND AND MARIJUANA. PT IS HERE TO GET READMITTED. PT OTHERWISE DENIES ANY OTHER SYMPTOMS. Time Seen by MD: 20:02 Primary Care Provider: gurpreet Reviewed Notes: Nurses Notes, Medications, Allergies Allergies: Coded Allergies: NO KNOWN ALLERGIES (Unverified , 07/01/19) Home Meds Active Scripts Ibuprofen Micronized (Ibuprofen) 800 Mg Tab, 800 MG PO TID for 7 Days, #21 TAB Prov:MARY PHILIPPE 09/20/24 Ondansetron Odt 4MG Tab (ZOFRAN PO) 4 Mg Tb, 4 MG PO Q8HP PRN for 5 Days, #15 TAB ODT TAB-DISSOLVE IN MOUTH, THEN SWALLOW Prov:DARRIUS BHATT MD 08/26/24 Naloxone HCl (Narcan) 4 Mg/0.1 Ml Spr, 4 MG NA DAILY PRN for 4 Days, #4 SPRAY 2 Refills Prov:JULIANA QUINONEZ DO 04/24/23 Information Source: Patient Mode of Arrival: Ambulatory Brought in by: SELF Location: Right Extremity Location: Leg Timing: Days Prehospital treatment: None Severity: Moderate Able to Move Extremity: Yes Bear Weight: Limited Pain: Moderate Hand Dominance: Right Mechanism: Spontaneous Circumstances: Fall Onset of Symptoms: Spontaneous Symptoms: Swelling, Pain DVT Risk Factors: Immobilization Last Tetanus: Unknown Associated signs and symptoms: Leg pain Past Medical History PAST MEDICAL HISTORY: Denies Surgical History: Denies all surgeries Family History Family History: Family hx of Cancer Social History Smoker: Cigarettes, Less Than 1 Pack/Day Alcohol: Heavy Drugs: Marijuana, Methamphetamine, Other (PCP) Lives In: Home, Unobtainable Constitutional: denies: chills, diaphoresis, fatigue, fever, malaise, sweats, weakness, others EENTM: denies: blurred vision, double vision, ear bleeding, ear discharge, ear drainage, ear pain, ear ringing, eye pain, eye redness, hearing loss, mouth pain, mouth swelling, nasal discharge, nose bleeding, nose congestion, nose pain, photophobia, tearing, throat pain, throat swelling, voice changes, others Respiratory: denies: cough, hemoptysis, orthopnea, SOB at rest, shortness of breath, SOB with excertion, stridor, wheezing, others Cardiovascular: denies: chest pain, dizzy spells, diaphoresis, Dyspnea on exertion, edema, irregular heart beat, left arm pain, lightheadedness, palpitations, PND, syncope, others Gastrointestinal: denies: abdomen distended, abdominal pain, blood streaked bowels, constipated, diarrhea, dysphagia, difficulty swallowing, hematemesis, melena, nausea, poor appetite, poor fluid intake, rectal bleeding, rectal pain, vomiting, others Genitourinary: denies: burning, dysuria, flank pain, frequency, hematuria, incontinence, penile discharge, penile sore, pain, testicle pain, testicle swelling, urgency, others Neurological: denies: dizziness, fainting, headache, left sided numbness, left sided weakness, numbness, paresthesia, pre-existing deficit, right sided numbness, right sided weakness, seizure, speech problems, tingling, tremors, weakness, others Musculoskeletal: reports: joint pain (RLE); denies: back pain, gout, joint swelling, muscle pain, muscle stiffness, neck pain, others Integumetry: denies: bruises, change in color, change in hair/nails, dryness, laceration, lesions, lumps, rash, wounds, others Allergic/Immunocompromised: denies: Difficulty Healing, Frequent Infections, Hives, Itching, others Hematologic/Lymphatic: denies: anemia, blood clots, easy bleeding, easy bruising, swollen glands, others Endocrine: denies: excessive hunger, excessive sweating, excessive thirst, excessive urination, flushing, intolerance to cold, intolerance to heat, unexplained weight gain, unexplained weight loss, others Psychiatric: denies: anxiety, bipolar disorder, depression, hopeless, panic disorder, schizophrenia, sleepless, suicidal, others All Other Systems: Reviewed and Negative Physical Exam General Appearance: Moderate Distress HEENT: Normal ENT Inspection, Pharynx Normal, TMs Normal Neck: Full Range of Motion, Non-Tender, Normal, Normal Inspection Respiratory: Chest Non-Tender, Lungs Clear, No Accessory Muscle Use, No R espiratory Distress, Normal Breath Sounds Cardiovascular: No Edema, No JVD, No Murmur, No Gallop, Normal Peripheral Pulses, Regular Rate/Rhythm Breast Exam: Deferred Gastrointestinal: No Organomegaly, Non Tender, No Pulsatile Mass, Normal Bowel Sounds, Soft Genitalia: Deferred Pelvic: Deferred Rectal: Deferred Extremities: No calf tenderness, Normal capillary refill, No pedal edema Musculoskeletal : Location: Right Extremity Location: Ankle Apperance: Deformity, Limited ROM, Tenderness: Severe Neurologic: Alert, inspector plug seam II-XII nml as Tested, No Motor Deficits, Normal Affect, Normal Mood, No Sensory Deficits Cerebellar Function: Normal Reflexes: Normal Skin: Dry, Normal Color, Warm Lymphatic: No Adenopathy Was a procedure done? Was a procedure done?: No Differential Diagnosis EXT Differential Diagnosis: Cellulitis, Deep Vein Thrombosis, Fracture, Contusion, Strain Other Differential Diagnosis DRUG USE X-Ray, Labs, Meds, VS X-ray was done a couple of days ago which showed: FINDINGS/IMPRESSION: Displaced fractures of the fibular neck and posterior malleolus. IV Hep-Lock was established The patient will be admitted to the hospitalist We did contact the hospitalist and at this time the patient will be admitted. The patient was being given morphine for pain and Zofran for nausea IV Hep-Lock was established. Images Reviewed?: Images reviewed and evaluated by me Time of 1ST Reevaluation: 20:35 Reevaluation 1ST: Unchanged Patient Education/Counseling: Diagnosis, Treatment, Prognosis Family Education/Counseling: No Family Present Departure 1 Departure Time of Disposition: 21:18 Impression: Primary Impression: Polysubstance abuse Additional Impression: Ankle fracture, right Qualified Codes: S82.891A - Other fracture of right lower leg, initial encounter for closed fracture Disposition: ADMITTED INPATIENT Admit to: Med Surg Condition: Fair Critical Care Note Critical Care Time?: No Stability Stability form required: Yes Unstable for transfer: ED Physician Assesment (Clinical assesment) Heart Score Heart Score: Heart Score Response (Comments) Value History N/A 0 EKG N/A 0 Age N/A 0 Risk Factors N/A 0 Troponin N/A 0 Total 0 I personally scribed for DARRIUS BHATT MD ([email or web address]) on 09/24/24 at 20:04. Electronically submitted by Ernestine Pizano ([facility]). DARRIUS BHATT MD Sep 24, 2024 20:04
--- NOTE | 2024-09-24 20:44 | DVHHP2 ---
Admitting Diagnosis: Right leg pain History of Present Illness HPI Patient is a 49-year-old male who presents to the emergency room for complaints for the past 6 days of right leg pain. Patient was diagnosed with a right fibula fracture/right ankle sprain in ER here 5 days ago but presents here today because of worsening right leg pain and swelling. Patient states pain at this time is a 7 out of 10 with pain radiating diffusely to right leg. Patient is currently homeless. Patient has not contacted PCP or orthopedics yet for follow-up. Patient has a past medical history of methamphetamine and EtOH abuse. Patient presents to the ER with crutches and a right knee immobilizer in no distress. Patient was admitted 1 day ago however he had to leave to use recreational drugs including methamphetamines and marijuana and PCP. Patient is here to get readmitted and otherwise denies any other symptoms. While in the emergency department the patient was evaluated by the provider, As per provider: Labs, vital signs, and imagining monitored. Patient will be admitted for further evaluation and treatment. I discussed admission with the patient/family and is in agreement to treatment plan Home Meds Active Scripts Ibuprofen Micronized (Ibuprofen) 800 Mg Tab, 800 MG PO TID for 7 Days, #21 TAB Prov:MARY PHILIPPE 09/20/24 Ondansetron Odt 4MG Tab (ZOFRAN PO) 4 Mg Tb, 4 MG PO Q8HP PRN for 5 Days, #15 TAB ODT TAB-DISSOLVE IN MOUTH, THEN SWALLOW Prov:DARRIUS BHATT MD 08/26/24 Naloxone HCl (Narcan) 4 Mg/0.1 Ml Spr, 4 MG NA DAILY PRN for 4 Days, #4 SPRAY 2 Refills Prov:JULIANA QUINONEZ DO 04/24/23 Review of Systems Musculoskeletal: Leg pain, Foot pain, Joint pain Assessment/Plan Plan 1. Benign essential hypertension Monitor, antihypertensives 2. Right fibula fracture Monitor, orthopedic consult, as needed pain medications 3. Right ankle strain Monitor, as needed pain medications, orthopedic consult 4. Homelessness Monitor, oncology social work consult 5. Polysubstance abuse Monitor, PPI 6. MRSA nares Monitor, Bactroban to nares, DVT prophylaxis Plan discussed with: Patient, Other LELA AGUILAR NP Sep 24, 2024 20:44
[2024-09-24] MEDS ORDERED: ONDANSETRON HCL 4 MG/2 ML VIAL IV PRN (20:45)
[2024-09-24] MEDS ORDERED: NITROGLYCERIN 0.4 MG SL TAB SL PRN (20:45)
[2024-09-24] MEDS ORDERED: MORPHINE SULFATE INJ 2 MG/ml SYRG IV PRN (20:45)
[2024-09-24] MEDS ORDERED: ACETAMINOPHEN 325 MG TAB PO PRN (20:45)
[2024-09-24] MEDS ORDERED: DOCUSATE SOD 100 MG CAP PO PRN (20:45)
[2024-09-24] MEDS ORDERED: TEMAZEPAM 15 MG CAP PO PRN (20:45)
[2024-09-25 04:21] VITALS: PULSE 100; RESP 18; O2SAT 94
[2024-09-25 04:37] VITALS: BP 146/80; PULSE 95; RESP 19; TEMP 97.9; O2SAT 97
[2024-09-25 08:08] LABS: Basophils # (auto) 0.1 10 ^3/uL (0-0.2); Eosinophils # (auto) 0.4 10 ^3/uL (0-0.8); Eosinophils % (auto) 6.3 % (0.0-7.0); Hematocrit 39.8 % (41.0-53.0); Hemoglobin 13.3 g/dL (13.5-17.5); Lymphocytes # (auto) 1.6 10 ^3/uL (0.4-5.4); Lymphocytes % (auto) 23.1 % (10.0-50.0); Mean Corpuscular Hemoglobin 31.3 pg (28.0-32.0); Mean Corpuscular Hgb Conc. 33.4 g/dL (32.0-36.0); Mean Corpuscular Volume 93.5 fL (80.0-100.0); Monocytes # (auto) 0.9 10 ^3/uL (0-1.3); Monocytes % (auto) 12.2 % (0.0-12.0); Neutrophils # (auto) 4.1 10 ^3/uL (1.6-8.6); Neutrophils % (auto) 57.4 % (37.0-80.0); Platelet Count (auto) 244 10^3/uL (140-450); Red Blood Cells 4.25 10^6/uL (4.5-5.90); Red Cell Distribution Width 13.7 % (11.8-14.3); White Blood Cell 7.1 10^3/uL (4.4-10.8)
[2024-09-25 08:39] LABS: Albumin 4.2 g/dL (3.2-4.8); Alkaline Phosphatase 63 U/L (46-116); Anion Gap 8 (5-15); Aspartate Aminotransferase 39 U/L (13-40); BUN/Creatinine Ratio 19.3 (10.0-20.0); Blood Urea Nitrogen 21 mg/dL (9-23); Calcium 9.4 mg/dL (8.7-10.4); Carbon Dioxide 28 mmol/L (20-31); Glucose 100 mg/dL (74-106); Sodium 143 mmol/L (136-145)
[2024-09-25 08:40] LABS: Bilirubin, Total 0.5 mg/dL (0.2-1.0); Total Protein 6.5 g/dL (5.7-8.2)
[2024-09-25 08:43] LABS: Alanine Aminotransferase 44 U/L (7-40); Chloride 107 mmol/L (98-107)
[2024-09-25 08:59] LABS: Hepatitis B Surface Antigen Negative (Negative)
[2024-09-25 09:00] VITALS: BP 142/83; PULSE 72; RESP 17; TEMP 96.6; O2SAT 97
[2024-09-25 09:23] LABS: Hepatitis C Antibody Negative (Negative)
[2024-09-25] MEDS: ENOXAPARIN SOD 40 MG/0.4 ML SYRINGE SC SCH (10:03)
[2024-09-25] MEDS: MORPHINE SULFATE INJ 2 MG/ml SYRG IV PRN (10:05)
[2024-09-25 12:36] VITALS: BP 142/79; PULSE 104; RESP 19; TEMP 98.3; O2SAT 98
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
[2024-09-25] MEDS: PANTOPRAZOLE 40 MG TAB PO SCH (16:30)
[2024-09-25] MEDS: HYDROcodone-ACET 5/325MG TAB PO PRN (16:49)
[2024-09-25 17:00] VITALS: BP 146/91; PULSE 94; RESP 17; TEMP 97.6; O2SAT 98
[2024-09-25] MEDS: LISINOPRIL 20 MG TAB PO SCH (17:10)
[2024-09-25] MEDS: NICOTINE 14 MG/24HR TOPICAL PATCH TD SCH (17:30)
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
[2024-09-25 19:01] LABS: Opiate Scree,Urine Neg (NEGATIVE)
[2024-09-25 19:02] LABS: Cannabinoid Screen, Urine Neg (NEGATIVE)
[2024-09-25 19:04] LABS: Amphetamine Screen, Urine Pos (NEGATIVE); Barbiturate Scree,Urine Neg (NEGATIVE); Benzodiazephine Screen, Urine Neg (NEGATIVE); Cocaine Screen, Urine Neg (NEGATIVE); Phencyclidine Screen, Urine Pos (NEGATIVE)
[2024-09-25] MEDS: LORazepam 2MG/ML-1ML VIAL IV ONE (20:25)
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
[2024-09-25] MEDS: GABAPENTIN 300 MG CAP PO SCH (22:00)
[2024-09-25] MEDS: SENNA 8.6 MG TAB PO SCH (22:00)
[2024-09-25] MEDS: MUPIROCIN 2% OINT 15gm or 22gm FOR MRSA NARES EACHNOSTRI SCH (22:00)
[2024-09-25] MEDS: OLANZapine 5 MG TAB PO SCH (22:00)
[2024-09-25 22:27] VITALS: BP 97/46; PULSE 72; RESP 20; TEMP 98.6; O2SAT 100
[2024-09-26] VITALS (7 sets, daily range): BP systolic 100–153; BP diastolic 54–78; PULSE 70–111; RESP 18–20; TEMP 97.9–98.6; O2SAT 93–98
[2024-09-26] MEDS: HYDROcodone-ACET 5/325MG TAB PO PRN (03:50)
[2024-09-26] MEDS: LORazepam 2MG/ML-1ML VIAL IV PRN (04:26)
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
[2024-09-26] MEDS: FOLIC ACID 1 MG TAB PO SCH (10:46)
[2024-09-26] MEDS: FUROSEMIDE 40 MG/4 ML VIAL IV SCH (10:46)
[2024-09-26] MEDS: MORPHINE SULFATE INJ 2 MG/ml SYRG IV PRN (14:36)
[2024-09-26] MEDS ORDERED: NALO4SPR2 (15:12)
[2024-09-26] MEDS ORDERED: HYDR-4902 PO (15:12)
--- NOTE | 2024-09-26 15:17 | DVHDS2 ---
Discharge Summary Date of Admission Sep 24, 2024 at 20:41 Date of Discharge: Sep 26, 2024 Labs/Diagnostic Data: Laboratory Results Test 09/25/24 19:02 09/25/24 07:37 Urine Opiates Screen Neg (NEGATIVE) Urine Fentanyl Screen Neg (NEGATIVE) Urine Barbiturates Screen Neg (NEGATIVE) Urine Phencyclidine Screen Pos (NEGATIVE) Urine Amphetamines Screen Pos (NEGATIVE) Urine Benzodiazepines Screen Neg (NEGATIVE) Urine Cocaine Screen Neg (NEGATIVE) Urine Cannabinoids Screen Neg (NEGATIVE) White Blood Count 7.1 10^3/uL (4.4-10.8) Red Blood Count 4.25 10^6/uL (4.5-5.90) Hemoglobin 13.3 g/dL (13.5-17.5) Hematocrit 39.8 % (41.0-53.0) Mean Corpuscular Volume 93.5 fL (80.0-100.0) Mean Corpuscular Hemoglobin 31.3 pg (28.0-32.0) Mean Corpuscular Hemoglobin Concent 33.4 g/dL (32.0-36.0) Red Cell Distribution Width 13.7 % (11.8-14.3) Platelet Count 244 10^3/uL (140-450) Mean Platelet Volume 7.6 fL (6.9-10.8) Neutrophils (%) (Auto) 57.4 % (37.0-80.0) Lymphocytes (%) (Auto) 23.1 % (10.0-50.0) Monocytes (%) (Auto) 12.2 % (0.0-12.0) Eosinophils (%) (Auto) 6.3 % (0.0-7.0) Basophils (%) (Auto) 1.0 % (0.0-2.0) Neutrophils # (Auto) 4.1 10 ^3/uL (1.6-8.6) Lymphocytes # (Auto) 1.6 10 ^3/uL (0.4-5.4) Monocytes # (Auto) 0.9 10 ^3/uL (0-1.3) Eosinophils # (Auto) 0.4 10 ^3/uL (0-0.8) Basophils # (Auto) 0.1 10 ^3/uL (0-0.2) Nucleated Red Blood Cells 0.0 % Sodium Level 143 mmol/L (136-145) Potassium Level 4.0 mmol/L (3.5-5.1) Chloride Level 107 mmol/L (98-107) Carbon Dioxide Level 28 mmol/L (20-31) Anion Gap 8 (5-15) Blood Urea Nitrogen 21 mg/dL (9-23) Creatinine 1.09 mg/dL (0.700-1.30) Glomerular Filtration Rate Calc 82 mL/min (>90) BUN/Creatinine Ratio 19.3 (10.0-20.0) Serum Glucose 100 mg/dL (74-106) Calcium Level 9.4 mg/dL (8.7-10.4) Total Bilirubin 0.5 mg/dL (0.2-1.0) Aspartate Amino Transferase (AST) 39 U/L (13-40) Alanine Aminotransferase (ALT) 44 U/L (7-40) Alkaline Phosphatase 63 U/L (46-116) Total Protein 6.5 g/dL (5.7-8.2) Albumin 4.2 g/dL (3.2-4.8) Hepatitis B Surface Antigen Negative (Negative) Hepatitis C Antibody Negative (Negative) Other Laboratory Tests 09/25/24 07:37 Final Diagnosis/Problems List Fibula fracture. Splint in place. No surgery needed Discharge Disposition: Home Discharge Instruct/Medications Diet: Cardiac 2g Na,low cholest Activity: No Restrictions, As Tolerated Follow Up/Referral: Follow up with [facility] 1-2 weeks Follow up with your PCP in one week Discharge Statement: "Patient was advised to return to the ER or call 911 if any headaches, dizziness, shortness of breath, chest pain, abdominal pain, bleeding, fevers, or worsening of medical condition. Patient was counseled about treatment plan, medications, possible side effects, patientverbalized understanding. All questions were answered to the best of my ability. This discharge took greater then 30 minutes in planning, reviewing documentation, counseling the patient, and discussing with other team members." ASSESSMENT ASSESSMENT Assessment Fibula fracture. Splint in place. No surgery needed LELA AGUILAR NP Sep 26, 2024 15:17
[2024-09-26] MEDS: NALOXONE HCL 0.4 MG/ML VIAL ONE (18:32)
[2024-09-26] MEDS: NALOXONE HCL 0.4 MG/ML VIAL IV ONE (18:34)
[2024-09-26 19:24] LABS: Albumin 4.2 g/dL (3.2-4.8); Alkaline Phosphatase 63 U/L (46-116); Anion Gap 8 (5-15); Aspartate Aminotransferase 40 U/L (13-40); BUN/Creatinine Ratio 11.7 (10.0-20.0); Bilirubin, Total 0.4 mg/dL (0.2-1.0); Blood Urea Nitrogen 14 mg/dL (9-23); Calcium 9.5 mg/dL (8.7-10.4); Carbon Dioxide 26 mmol/L (20-31); Glucose 102 mg/dL (74-106); Potassium 3.6 mmol/L (3.5-5.1); Sodium 141 mmol/L (136-145)
[2024-09-26 19:25] LABS: Alanine Aminotransferase 44 U/L (7-40); Chloride 107 mmol/L (98-107); Total Protein 6.5 g/dL (5.7-8.2)
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
[2024-09-27] VITALS (9 sets, daily range): BP systolic 115–150; BP diastolic 58–93; PULSE 91–115; RESP 18–20; TEMP 98.1–99.7; O2SAT 92–98
--- NOTE | 2024-09-27 12:43 | DVHPN2 ---
Progress Note - Dictate Date Seen: Sep 27, 2024 Medical Necessity Reason Pt with a Central, PICC or Fol: No vital signs Vital Sign Date Time Temp Pulse Resp B/P (MAP) Pulse Ox O2 Delivery O2 Flow Rate FiO2 09/27/24 12:40 98.6 94 20 122/74 (90) 98 98.6 09/27/24 07:30 Room Air* 0 21 Total Intake and Output 09/26/24 09/26/24 09/27/24 15:00 23:00 07:00 Intake Total 595 ml Balance 595 ml medications Current Medications Medications Dose Ordered Sig/Valorie Route Start Time Stop Time Status Last Admin Dose Admin Temazepam 15 mg QHSP PRN PO 09/24/24 20:45 Ondansetron HCl 4 mg Q4HP PRN IV 09/24/24 20:45 Docusate Sodium 100 mg BIDPRN PRN PO 09/24/24 20:45 Enoxaparin Sodium 40 mg DAILY SC 09/25/24 10:00 09/27/24 10:59 40 MG Acetaminophen 650 mg Q6HP PRN PO 09/24/24 20:45 Nitroglycerin 0.4 mg Q5MINP PRN SL 09/24/24 20:45 Morphine Sulfate 2 mg Q30M PRN IV 09/24/24 20:45 Mupirocin 1 applic BID EACHNOSTRI 09/25/24 22:00 09/30/24 21:59 09/27/24 11:00 1 APPLIC Lisinopril 20 mg DAILY PO 09/25/24 16:30 09/27/24 10:58 20 MG Pantoprazole Sodium 40 mg DAILY@0600 PO 09/25/24 16:30 Acetaminophen/ Hydrocodone Bitart 2 tab Q4HP PRN PO 09/25/24 17:30 09/27/24 10:59 2 TAB Sennosides 17.2 mg HS PO 09/25/24 22:00 09/26/24 22:52 17.2 MG Nicotine 1 patch DAILY TD 09/25/24 17:30 09/27/24 10:58 1 PATCH Olanzapine 2.5 mg BID PO 09/25/24 22:00 09/27/24 10:59 2.5 MG Lorazepam 1 mg Q3HR PRN IV 09/25/24 20:45 09/27/24 03:43 1 MG Gabapentin 300 mg TID PO 09/25/24 22:00 09/26/24 22:52 300 MG Folic Acid 1 mg DAILY PO 09/26/24 10:00 09/27/24 10:59 1 MG Furosemide 40 mg DAILY IV 09/26/24 10:00 09/27/24 10:57 40 MG objective General Appearance: alert, no distress HEENT: EOMI, PERRLA, normal external inspect of ears, no icterus, no nasal drainage Neck: no carotid bruit, no jugular venous distention (JVD), no lymphadenopathy Chest: normal thorax Respiratory: clear to auscultation, normal air movement Cardiovascular: regular rate and rhythm, no diastolic murmur, no jugular venous distention (JVD), no rub, no systolic murmur Abdominal: soft, no hepatomegaly, no mass, no splenomegaly, no tenderness Genitourinary: grossly normal external Musculoskeletal: no joint tenderness, no swelling Extremities: normal pulses, no calf tenderness, no clubbing, no cyanosis, no edema Skin: no bruising, no jaundice, no rash Neurological: alert, No focal deficit laboratory and microbiology Laboratory Tests 09/26/24 18:36 09/25/24 07:37 Test 09/26/24 18:36 Range/Units Serum Glucose 102 74-106 mg/dL Problem List 1. Benign essential hypertension Monitor, antihypertensives 2. Right fibula fracture Monitor, orthopedic consult, as needed pain medications 3. Right ankle strain Monitor, as needed pain medications, orthopedic consult 4. Homelessness Monitor, social work supervisor consult 5. Polysubstance abuse Monitor, PPI 6. 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 Objective: Patient has a sitter at bedside. Patient was a Code assist last night but signed out AMA to smoke. Apparently, the patient became non-responsive and admitted to smoking cigarettes laced with PCP. Narcan was given. Patient was cleared for discharge by an orthopedic surgeon. Patient is homeless and waiting on social work supervisor for placement. Plan: Continue current treatment. Stop IV narcotics. PRN pain medication. Plan for discharge once arrangements have been made. Plan discussed with: Patient, Other LELA AGUILAR NP Sep 27, 2024 12:43
[2024-09-29] MEDS ORDERED: BACDST PO (01:18)
== END 2024-09-28 00:18 | disposition left against medical advice (07) | DRG 342 ==
LOC: ER 19:35 → OVERFLOW 20:41 → TELE-CENTR 09-25 21:50
PROVIDERS: ADMIT Nurse Practitioner; ATTEND Nurse Practitioner
DX: S82.401A Unspecified fracture of shaft of right fibula, initial encounter for closed fracture (principal); F10.10 Alcohol abuse, uncomplicated; I10 Essential (primary) hypertension; Z59.00 Homelessness unspecified; S96.911A Strain of unspecified muscle and tendon at ankle and foot level, right foot, initial encounter; F17.210 Nicotine dependence, cigarettes, uncomplicated; F15.10 Other stimulant abuse, uncomplicated; F12.10 Cannabis abuse, uncomplicated; Y90.9 Presence of alcohol in blood, level not specified; W18.39XA Other fall on same level, initial encounter; Z79.1 Long term (current) use of non-steroidal anti-inflammatories (NSAID); Z79.899 Other long term (current) drug therapy; Y93.89 Activity, other specified; Y92.89 Other specified places as the place of occurrence of the external cause; Y99.8 Other external cause status
CPT/HCPCS: 36415; 70450; 70480; 80053; 80307; 82962; 85025; 86803; 87081; 87340; G0378

== ENCOUNTER 2024-09-28 05:09 | Emergency (ER) | payer MEDICAID ==
[~2024-09-28] VITALS: Ht 180.3 cm; Wt 98.4 kg
[2024-09-28 05:09] VITALS: BP 170/94; PULSE 82; RESP 18; O2SAT 97
[~2024-09-28 05:09] MED LIST changes: +HYDR-4902 PO
--- NOTE | 2024-09-28 06:24 | ED.PDOC ---
Musculoskeletal HPI Comments 49 year old male CHARLES presents to the ED with chief complaint of right leg pain. EMS reports patient had called 911 for right sided ankle pain for an unknown amount of time. EMS relays patient is confused and does not answer most questions appropriately. Patient states he is not sure why he is in the hospital when questioned and is very slow to respond. Patient notes he was admitted before. Patient unable to answer any further questions at this time. Chief Complaint: Lower Extremity Time Seen by MD: 06:19 Primary Care Provider: gurpreet Reviewed Notes: Nurses Notes, Medications, Allergies Allergies: Coded Allergies: NO KNOWN ALLERGIES (Unverified , 07/01/19) Home Meds Active Scripts Naloxone HCl (Narcan) 4 Mg/0.1 Ml Spr, 4 MG NA UD for 30 Days, #1 SPRAY Prov:LELA AGUILAR LOCKSTITCH MACHINE OPERATOR 09/26/24 Hydrocodone-Acetaminophen (Hydrocodone Bitartrate/AC 5-325 mg) 1 Tab Tab, 1 TAB PO Q8HPRN PRN for 5 Days, #15 TAB Prov:LELA AGUILAR LOCKSTITCH MACHINE OPERATOR 09/26/24 Ondansetron Odt 4MG Tab (ZOFRAN PO) 4 Mg Tb, 4 MG PO Q8HP PRN for 5 Days, #15 TAB ODT TAB-DISSOLVE IN MOUTH, THEN SWALLOW Prov:DARRIUS BHATT MD 08/26/24 Naloxone HCl (Narcan) 4 Mg/0.1 Ml Spr, 4 MG NA DAILY PRN for 4 Days, #4 SPRAY 2 Refills Prov:JULIANA QUINONEZ DO 04/24/23 Discontinued Scripts Ibuprofen Micronized (Ibuprofen) 800 Mg Tab, 800 MG PO TID for 7 Days, #21 TAB Prov:MARY PHILIPPE 09/20/24 Information Source: Patient, Emergency Med Personnel Mode of Arrival: EMS Location: Right Extremity Location: Ankle Timing: Hours Prehospital treatment: None Severity: Moderate Able to Move Extremity: Yes Bear Weight: Limited Pain: Moderate Mechanism: Spontaneous Circumstances: Spontaneous Onset of Symptoms: Spontaneous Symptoms: Pain DVT Risk Factors: NONE Last Tetanus: Unknown Past Medical History PAST MEDICAL HISTORY: Denies Surgical History: Denies all surgeries Family History Family History: Family hx of Cancer Social History Smoker: Cigarettes, Less Than 1 Pack/Day Alcohol: Heavy Drugs: Marijuana, Methamphetamine, Other Lives In: Unobtainable Constitutional: denies: chills, diaphoresis, fatigue, fever, malaise, sweats, weakness, others EENTM: denies: blurred vision, double vision, ear bleeding, ear discharge, ear drainage, ear pain, ear ringing, eye pain, eye redness, hearing loss, mouth pain, mouth swelling, nasal discharge, nose bleeding, nose congestion, nose pain, photophobia, tearing, throat pain, throat swelling, voice changes, others Respiratory: denies: cough, hemoptysis, orthopnea, SOB at rest, shortness of breath, SOB with excertion, stridor, wheezing, others Cardiovascular: denies: chest pain, dizzy spells, diaphoresis, Dyspnea on exertion, edema, irregular heart beat, left arm pain, lightheadedness, palpitations, PND, syncope, others Gastrointestinal: denies: abdomen distended, abdominal pain, blood streaked bowels, constipated, diarrhea, dysphagia, difficulty swallowing, hematemesis, melena, nausea, poor appetite, poor fluid intake, rectal bleeding, rectal pain, vomiting, others Genitourinary: denies: burning, dysuria, flank pain, frequency, hematuria, incontinence, penile discharge, penile sore, pain, testicle pain, testicle swelling, urgency, others Neurological: denies: dizziness, fainting, headache, left sided numbness, left sided weakness, numbness, paresthesia, pre-existing deficit, right sided numbness, right sided weakness, seizure, speech problems, tingling, tremors, we akness, others Musculoskeletal: reports: others (Rt leg pain); denies: back pain, gout, joint pain, joint swelling, muscle pain, muscle stiffness, neck pain Integumetry: denies: bruises, change in color, change in hair/nails, dryness, laceration, lesions, lumps, rash, wounds, others Allergic/Immunocompromised: denies: Difficulty Healing, Frequent Infections, Hives, Itching, others Hematologic/Lymphatic: denies: anemia, blood clots, easy bleeding, easy bruising, swollen glands, others Endocrine: denies: excessive hunger, excessive sweating, excessive thirst, excessive urination, flushing, intolerance to cold, intolerance to heat, unexplained weight gain, unexplained weight loss, others Psychiatric: denies: anxiety, bipolar disorder, depression, hopeless, panic disorder, schizophrenia, sleepless, suicidal, others All Other Systems: Reviewed and Negative Physical Exam General Appearance: No Apparent Distress, Other (Patient pleasantly confused) HEENT: Normal ENT Inspection, PERRL/EOMI Neck: Full Range of Motion, Non-Tender, Normal, Normal Inspection Respiratory: Chest Non-Tender, Lungs Clear, No Accessory Muscle Use, No Respiratory Distress, Normal Breath Sounds Cardiovascular: No Edema, No JVD, No Murmur, No Gallop, Normal Peripheral Pulses, Regular Rate/Rhythm Breast Exam: Deferred Gastrointestinal: No Organomegaly, Non Tender, No Pulsatile Mass, Normal Bowel Sounds, Soft Genitalia: Deferred Pelvic: Deferred Rectal: Deferred Extremities: No calf tenderness, Normal capillary refill, Normal inspection, Normal range of motion, Non-tender, No pedal edema Musculoskeletal : Apperance: Normal Neurologic: Alert, flatbed stitcher II-XII nml as Tested, No Motor Deficits, Normal Affect, Normal Mood, No Sensory Deficits Cerebellar Function: Normal Reflexes: Normal Skin: Dry, Normal Color, Warm Lymphatic: No Adenopathy Was a procedure done? Was a procedure done?: No Differential Diagnosis EXT Differential Diagnosis: Cellulitis, CHF, Other X-Ray, Labs, Meds, VS Vital Signs Date Time Temp Pulse Resp B/P (MAP) Pulse Ox O2 Delivery O2 Flow Rate FiO2 09/28/24 05:09 98.7 82 18 170/94 (119) 97 Lab Test 09/28/24 06:47 Range/Units White Blood Count 9.0 # 4.4-10.8 10^3/uL Red Blood Count 4.80 4.5-5.90 10^6/uL Hemoglobin 14.7 13.5-17.5 g/dL Hematocrit 45.5 # 41.0-53.0 % Mean Corpuscular Volume 94.9 80.0-100.0 fL Mean Corpuscular Hemoglobin 30.7 28.0-32.0 pg Mean Corpuscular Hemoglobin Concent 32.4 32.0-36.0 g/dL Red Cell Distribution Width 14.2 11.8-14.3 % Platelet Count 287 140-450 10^3/uL Mean Platelet Volume 7.5 6.9-10.8 fL Neutrophils (%) (Auto) 68.0 37.0-80.0 % Lymphocytes (%) (Auto) 20.5 10.0-50.0 % Monocytes (%) (Auto) 7.6 0.0-12.0 % Eosinophils (%) (Auto) 3.0 0.0-7.0 % Basophils (%) (Auto) 0.9 0.0-2.0 % Neutrophils # (Auto) 6.1 1.6-8.6 10 ^3/uL Lymphocytes # (Auto) 1.8 0.4-5.4 10 ^3/uL Monocytes # (Auto) 0.7 0-1.3 10 ^3/uL Eosinophils # (Auto) 0.3 0-0.8 10 ^3/uL Basophils # (Auto) 0.1 0-0.2 10 ^3/uL Nucleated Red Blood Cells 0.1 % Sodium Level 141 136-145 mmol/L Potassium Level 4.6 3.5-5.1 mmol/L Chloride Level 106 98-107 mmol/L Carbon Dioxide Level 25 20-31 mmol/L Anion Gap 10 5-15 Blood Urea Nitrogen 16 9-23 mg/dL Creatinine 1.09 0.700-1.30 mg/dL Glomerular Filtration Rate Calc 82 >90 mL/min BUN/Creatinine Ratio 14.7 10.0-20.0 Serum Glucose 96 74-106 mg/dL Calcium Level 10.5 H 8.7-10.4 mg/dL Time of 1ST Reevaluation: 07:19 Reevaluation 1ST: Unchanged Patient Education/Counseling: Diagnosis, Treatment Family Education/Counseling: No Family Present Additional Information The following tests were ordered, and results were reviewed by me: CBC, BMP Additional Information was gathered from interviewing the following independent historians: EMS I reviewed and agreed with the following test results read by other providers: None I discussed treatment and results with medical personnel. Departure 1 Departure Time of Disposition: 08:04 (Patient appears to be drugs. We will observe patient discharge when clinically sober) Impression: Primary Impression: Polysubstance abuse Disposition: 01 HOME / SELF CARE / HOMELESS Condition: Stable Additional Instructions: Do not use drugs. There are resources to help you quit. You can call: [phone] ([phone]) If your symptoms worsen or you have any other concerns please return to the emergency room. Discharged With: Self Critical Care Note Critical Care Time?: No Stability Stability form required: No Heart Score Heart Score: Heart Score Response (Comments) Value History N/A 0 EKG N/A 0 Age N/A 0 Risk Factors N/A 0 Troponin N/A 0 Total 0 I personally scribed for JARED ZHOU MD ([email or web address]) on 09/28/24 at 06:24. Electronically submitted by Alessandro Hernandez ([email or web address]). JARED ZHOU MD Sep 28, 2024 06:24
[2024-09-28 07:15] LABS: Basophils # (auto) 0.1 10 ^3/uL (0-0.2); Basophils % (auto) 0.9 % (0.0-2.0); Eosinophils # (auto) 0.3 10 ^3/uL (0-0.8); Hematocrit 45.5 % (41.0-53.0); Hemoglobin 14.7 g/dL (13.5-17.5); Lymphocytes # (auto) 1.8 10 ^3/uL (0.4-5.4); Lymphocytes % (auto) 20.5 % (10.0-50.0); Mean Corpuscular Hemoglobin 30.7 pg (28.0-32.0); Mean Corpuscular Hgb Conc. 32.4 g/dL (32.0-36.0); Mean Corpuscular Volume 94.9 fL (80.0-100.0); Monocytes # (auto) 0.7 10 ^3/uL (0-1.3); Monocytes % (auto) 7.6 % (0.0-12.0); Neutrophils # (auto) 6.1 10 ^3/uL (1.6-8.6); Nucleated Red Blood Cells % 0.1 %; Platelet Count (auto) 287 10^3/uL (140-450); Red Cell Distribution Width 14.2 % (11.8-14.3)
[2024-09-28 07:30] LABS: Chloride 106 mmol/L (98-107); Potassium 4.6 mmol/L (3.5-5.1); Sodium 141 mmol/L (136-145)
[2024-09-28 07:31] LABS: Anion Gap 10 (5-15); Carbon Dioxide 25 mmol/L (20-31)
[2024-09-28 07:36] LABS: BUN/Creatinine Ratio 14.7 (10.0-20.0); Blood Urea Nitrogen 16 mg/dL (9-23); Glucose 96 mg/dL (74-106)
[2024-09-28 07:56] LABS: Calcium 10.5 mg/dL (8.7-10.4)
[2024-09-29] MEDS ORDERED: BACDST PO (01:18)
== END 2024-09-28 07:38 | disposition home or self-care (01) ==
LOC: EDBD 05:09 → ER 05:09
DX: F17.210 Nicotine dependence, cigarettes, uncomplicated (principal); F19.10 Other psychoactive substance abuse, uncomplicated; M25.571 Pain in right ankle and joints of right foot; F15.10 Other stimulant abuse, uncomplicated
CPT/HCPCS: 36415; 80048; 85025

== ENCOUNTER 2024-09-28 09:08 | Emergency (ER) | payer MEDICAID ==
[~2024-09-28] VITALS: Ht 180.3 cm; Wt 101.3 kg
[2024-09-28 09:20] VITALS: BP 170/100; PULSE 97; RESP 18; O2SAT 98
--- NOTE | 2024-09-28 09:47 | ED.PDOC ---
Musculoskeletal HPI Comments 49 year old male presents to the ED with chief complaint of right leg pain. Patient had previously been seen earlier in the day when EMS had dropped him off for right leg pain. Patient continues to complaint of right sided leg pain and has history of a fracture to that leg that he has not had followed up on by an orthopedist. Earlier, EMS relayed patient was confused and did not answer most questions appropriately. Patient stated he was not sure why he was in the hospital when questioned and was very slow to respond. Patient noted he was admitted before. Patient denies any numbness, weakness, chest pain, or SOB. Chief Complaint: Lower Extremity Time Seen by MD: 09:48 Primary Care Provider: gurpreet Reviewed Notes: Nurses Notes, Medications, Allergies Allergies: Coded Allergies: NO KNOWN ALLERGIES (Unverified , 07/01/19) Home Meds Active Scripts Sulfamethoxazole W/Trimethopri (Bactrim Ds Tablet) 1 Tab Tb, 1 TAB PO BID for 7 Days, #14 TAB Prov:TATYANA PANDYA PAC 09/29/24 Naloxone HCl (Narcan) 4 Mg/0.1 Ml Spr, 4 MG NA UD for 30 Days, #1 SPRAY Prov:LELA AGUILAR OCULAR PATHOLOGIST 09/26/24 Hydrocodone-Acetaminophen (Hydrocodone Bitartrate/AC 5-325 mg) 1 Tab Tab, 1 TAB PO Q8HPRN PRN for 5 Days, #15 TAB Prov:LELA AGUILAR OCULAR PATHOLOGIST 09/26/24 Ondansetron Odt 4MG Tab (ZOFRAN PO) 4 Mg Tb, 4 MG PO Q8HP PRN for 5 Days, #15 TAB ODT TAB-DISSOLVE IN MOUTH, THEN SWALLOW Prov:DARRIUS BHATT MD 08/26/24 Naloxone HCl (Narcan) 4 Mg/0.1 Ml Spr, 4 MG NA DAILY PRN for 4 Days, #4 SPRAY 2 Refills Prov:JULIANA QUINONEZ DO 04/24/23 Discontinued Scripts Ibuprofen Micronized (Ibuprofen) 800 Mg Tab, 800 MG PO TID for 7 Days, #21 TAB Prov:MARY PHILIPPE 09/20/24 Information Source: Patient Mode of Arrival: Ambulatory Location: Right Extremity Location: Leg Timing: Hours Prehospital treatment: None Severity: Moderate Able to Move Extremity: Yes Bear Weight: Limited Pain: Moderate Mechanism: Blunt Trauma Circumstances: Accident Onset of Symptoms: After Trauma Symptoms: Pain DVT Risk Factors: NONE Last Tetanus: Unknown Past Medical History PAST MEDICAL HISTORY: Denies Surgical History: Denies all surgeries Family History Family History: Reviewed,noncontributory to illness, Family hx of Cancer Social History Smoker: Cigarettes, Less Than 1 Pack/Day Alcohol: Heavy Drugs: Marijuana, Methamphetamine, Other Lives In: Unobtainable Constitutional: denies: chills, diaphoresis, fatigue, fever, malaise, sweats, weakness, others EENTM: denies: blurred vision, double vision, ear bleeding, ear discharge, ear drainage, ear pain, ear ringing, eye pain, eye redness, hearing loss, mouth pain, mouth swelling, nasal discharge, nose bleeding, nose congestion, nose pain, photophobia, tearing, throat pain, throat swelling, voice changes, others Respiratory: denies: cough, hemoptysis, orthopnea, SOB at rest, shortness of breath, SOB with excertion, stridor, wheezing, others Cardiovascular: denies: chest pain, dizzy spells, diaphoresis, Dyspnea on exertion, edema, irregular heart beat, left arm pain, lightheadedness, palpitations, PND, syncope, others Gastrointestinal: denies: abdomen distended, abdominal pain, blood streaked bowels, constipated, diarrhea, dysphagia, difficulty swallowing, hematemesis, melena, nausea, poor appetite, poor fluid intake, rectal bleeding, rectal pain, vomiting, others Genitourinary: denies: burning, dysuria, flank pain, frequency, hematuria, incontinence, penile discharge, penile sore, pain, testicle pain, testicle swelling, urgency, others Neurological: denies: dizziness, fainting, headache, left sided numbness, left sided weakness, numbness, paresthesia, pre-existing deficit, right sided numbne ss, right sided weakness, seizure, speech problems, tingling, tremors, weakness, others Musculoskeletal: reports: others (Rt leg pain); denies: back pain, gout, joint pain, joint swelling, muscle pain, muscle stiffness, neck pain Integumetry: denies: bruises, change in color, change in hair/nails, dryness, laceration, lesions, lumps, rash, wounds, others Allergic/Immunocompromised: denies: Difficulty Healing, Frequent Infections, Hives, Itching, others Hematologic/Lymphatic: denies: anemia, blood clots, easy bleeding, easy br uising, swollen glands, others Endocrine: denies: excessive hunger, excessive sweating, excessive thirst, excessive urination, flushing, intolerance to cold, intolerance to heat, unexplained weight gain, unexplained weight loss, others Psychiatric: denies: anxiety, bipolar disorder, depression, hopeless, panic disorder, schizophrenia, sleepless, suicidal, others All Other Systems: Reviewed and Negative Physical Exam General Appearance: No Apparent Distress, Normal HEENT: Normal ENT Inspection, PERRL/EOMI Neck: Full Range of Motion, Non-Tender, Normal, Normal Inspection Respiratory: Chest Non-Tender, Lungs Clear, No Accessory Muscle Use, No Respiratory Distress, Normal Breath Sounds Cardiovascular: No Edema, No JVD, No Murmur, No Gallop, Normal Peripheral Pulses, Regular Rate/Rhythm Breast Exam: Deferred Gastrointestinal: No Organomegaly, Non Tender, No Pulsatile Mass, Normal Bowel Sounds, Soft Genitalia: Deferred Pelvic: Deferred Rectal: Deferred Extremities: No calf tenderness, Normal capillary refill, Normal inspection, Normal range of motion, No pedal edema, Tender (Rt lower extremity tenderness) Musculoskeletal : Apperance: Normal Neurologic: Alert, saddle and side wire stitcher II-XII nml as Tested, No Motor Deficits, Normal Affect, Normal Mood, No Sensory Deficits Cerebellar Function: Normal Reflexes: Normal Skin: Dry, Normal Color, Warm Lymphatic: No Adenopathy Was a procedure done? Was a procedure done?: No Differential Diagnosis EXT Differential Diagnosis: Other (Polysubstance abuse) X-Ray, Labs, Meds, VS Vital Signs Date Time Temp Pulse Resp B/P (MAP) Pulse Ox O2 Delivery O2 Flow Rate FiO2 09/28/24 09:20 98.0 97 18 170/100 (123) 98 Time of 1ST Reevaluation: 10:48 Reevaluation 1ST: Unchanged Patient Education/Counseling: Diagnosis, Treatment Family Education/Counseling: No Family Present Additional Information The following tests were ordered, and results were reviewed by me: Additional Information was gathered from interviewing the following independent historians: I reviewed and agreed with the following test results read by other providers: I discussed treatment and results with medical personnel and: Departure 1 Departure Time of Disposition: 17:47 (Patient went polysubstance abuse multiple presentations here. Patient was discharged few hours ago. Patient requests placed asleep.) Impression: Primary Impression: Polysubstance abuse Disposition: HOME / SELF CARE / HOMELESS Condition: Stable Critical Care Note Critical Care Time?: No Stability Stability form required: No Heart Score Heart Score: Heart Score Response (Comments) Value History N/A 0 EKG N/A 0 Age N/A 0 Risk Factors N/A 0 Troponin N/A 0 Total 0 I personally scribed for JARED ZHOU MD ([email or web address]) on 09/28/24 at 09:47. Electronically submitted by Alessandro Hernandez ([email or web address]). I personally scribed for JARED ZHOU MD ([email or web address]) on 09/28/24 at 09:50. Electronically submitted by Alessandro Hernandez ([email or web address]). JARED ZHOU MD Sep 28, 2024 09:47
[2024-09-29] MEDS ORDERED: BACDST PO (01:18)
== END 2024-09-28 12:02 | disposition left against medical advice (07) ==
LOC: ER 09:08
DX: M79.604 Pain in right leg (principal); F17.210 Nicotine dependence, cigarettes, uncomplicated; F12.90 Cannabis use, unspecified, uncomplicated; F15.90 Other stimulant use, unspecified, uncomplicated; F19.90 Other psychoactive substance use, unspecified, uncomplicated; Z79.899 Other long term (current) drug therapy

== ENCOUNTER 2024-09-28 21:22 | Emergency (ER) | payer MEDICAID ==
[~2024-09-28] VITALS: Ht 180.3 cm; Wt 101.0 kg
--- NOTE | 2024-09-28 22:28 | DVH ---
CLINICAL INDICATION: Right ankle pain TECHNIQUE: 8 radiographic views of the right tibia and fibula were obtained. Comparison: XY R ANKLE 3 VIEW on DOS: 09/20/24 FINDINGS/IMPRESSION: Mildly displaced oblique fracture proximal fibula. The visualized joint space is well maintained. The alignment is anatomical. There is no radiopaque foreign body.
--- NOTE | 2024-09-28 23:35 | ED.PDOC ---
Musculoskeletal HPI Comments 49-year-old male with past medical history, presents to ED for right ankle pain for unknown time, with no other associated symptoms. Patient states that he them to a ditch, causing him to fall on after pain two patient does report that he has a fracture to his tibia. He denies any head injury, LOC, nausea, vomiting. Patient also complains of "MRSA in my nose. Splint as 10/10 in severity. Patient denies any fevers, nausea, vomiting, chest pain, shortness of breath. He denies any drug use today. On chart review, patient does have a history of polysubstance abuse. He was seen in this ED 3 times today and was escorted out by PD multiple times. Chief Complaint: Lower Extremity Time Seen by MD: 22:43 Primary Care Provider: gurpreet Reviewed Notes: Nurses Notes, Medications, Allergies Allergies: Coded Allergies: NO KNOWN ALLERGIES (Unverified , 07/01/19) Home Meds Active Scripts Sulfamethoxazole W/Trimethopri (Bactrim Ds Tablet) 1 Tab Tb, 1 TAB PO BID for 7 Days, #14 TAB Prov:TATYANA PANDYA PAC 09/29/24 Naloxone HCl (Narcan) 4 Mg/0.1 Ml Spr, 4 MG NA UD for 30 Days, #1 SPRAY Prov:LELA AGUILAR LOG CUT OFF SAWYER 09/26/24 Hydrocodone-Acetaminophen (Hydrocodone Bitartrate/AC 5-325 mg) 1 Tab Tab, 1 TAB PO Q8HPRN PRN for 5 Days, #15 TAB Prov:LELA AGUILAR LOG CUT OFF SAWYER 09/26/24 Ondansetron Odt 4MG Tab (ZOFRAN PO) 4 Mg Tb, 4 MG PO Q8HP PRN for 5 Days, #15 TAB ODT TAB-DISSOLVE IN MOUTH, THEN SWALLOW Prov:DARRIUS BHATT MD 08/26/24 Naloxone HCl (Narcan) 4 Mg/0.1 Ml Spr, 4 MG NA DAILY PRN for 4 Days, #4 SPRAY 2 Refills Prov:JULIANA QUINONEZ DO 04/24/23 Discontinued Scripts Ibuprofen Micronized (Ibuprofen) 800 Mg Tab, 800 MG PO TID for 7 Days, #21 TAB Prov:MARY PHILIPPE 09/20/24 Mode of Arrival: EMS Past Medical History PAST MEDICAL HISTORY: Denies Surgical History: Denies all surgeries Family History Family History: Reviewed,noncontributory to illness, Family hx of Cancer Social History Smoker: Cigarettes, Less Than 1 Pack/Day Alcohol: Heavy Drugs: Marijuana, Methamphetamine, Other Lives In: Unobtainable Constitutional: denies: chills, diaphoresis, fatigue, fever, malaise, sweats, weakness, others EENTM: denies: blurred vision, double vision, ear bleeding, ear discharge, ear drainage, ear pain, ear ringing, eye pain, eye redness, hearing loss, mouth pain, mouth swelling, nasal discharge, nose bleeding, nose congestion, nose pain, photophobia, tearing, throat pain, throat swelling, voice changes, others Respiratory: denies: cough, hemoptysis, orthopnea, SOB at rest, shortness of breath, SOB with excertion, stridor, wheezing, others Cardiovascular: denies: chest pain, dizzy spells, diaphoresis, Dyspnea on exertion, edema, irregular heart beat, left arm pain, lightheadedness, palpitations, PND, syncope, others Gastrointestinal: denies: abdomen distended, abdominal pain, blood streaked bowels, constipated, diarrhea, dysphagia, difficulty swallowing, hematemesis, melena, nausea, poor appetite, poor fluid intake, rectal bleeding, rectal pain, vomiting, others Genitourinary: denies: burning, dysuria, flank pain, frequency, hematuria, incontinence, penile discharge, penile sore, pain, testicle pain, testicle swelling, urgency, others Neurological: denies: dizziness, fainting, headache, left sided numbness, left sided weakness, numbness, paresthesia, pre-existing deficit, right sided numbness, right sided weakness, seizure, speech problems, tingling, tremors, weakness, others Musculoskeletal: reports: joint pain; denies: back pain, gout, joint swelling, muscle pain, muscle stiffness, neck pain, others Integumetry: reports: lesions; denies: bruises, change in color, change in hair/nails, dryness, laceration, lumps, rash, wounds, others Allergic/Immunocompromised: denies: Difficulty Healing, Frequent Infections, Hives, Itching, others Hematologic/Lymphatic: denies: anemia, blood clots, easy bleeding, easy bruising, swollen glands, others Endocrine: denies: excessive hunger, excessive sweating, excessive thirst, excessive urination, flushing, intolerance to cold, intolerance to heat, unexplained weight gain, unexplained weight loss, others Psychiatric: denies: anxiety, bipolar disorder, depression, hopeless, panic disorder, schizophrenia, sleepless, suicidal, others All Other Systems: Reviewed and Negative Physical Exam General Appearance: No Apparent Distress, Normal HEENT: Normal ENT Inspection, Pharynx Normal, TMs Normal Neck: Full Range of Motion, Non-Tender, Normal, Normal Inspection Respiratory: Chest Non-Tender, Lungs Clear, No Accessory Muscle Use, No Respiratory Distress, Normal Breath Sounds Cardiovascular: No Edema, No JVD, No Murmur, No Gallop, Normal Peripheral Pulses, Regular Rate/Rhythm Breast Exam: Deferred Gastrointestinal: No Organomegaly, Non Tender, No Pulsatile Mass, Normal Bowel Sounds, Soft Genitalia: Deferred Pelvic: Deferred Rectal: Deferred Extremities: No calf tenderness, Normal capillary refill, Normal inspection, Normal range of motion, Pedal edema, Swelling (Bilateral 2+ pedal edema.), Tender (Tenderness to palpation to the bilateral ankles. No calf tenderness. Negative Homans sign. No leg discoloration. Patient is ambulatory) Musculoskeletal : Apperance: Normal Neurologic: Alert, body and fender mechanic II-XII nml as Tested, No Motor Deficits, Normal Affect, Normal Mood, No Sensory Deficits Cerebellar Function: Normal Reflexes: Normal Skin: Dry, Normal Color, Warm, Other (Multiple small circular skin lesions noted to the patient's left hand, with mild erythema. Mild warmth to touch. Another abrasion noted to the left upper arm. No palpable abscesses noted.) Lymphatic: No Adenopathy Was a procedure done? Was a procedure done?: No Differential Diagnosis EXT Differential Diagnosis: Cellulitis, Fracture, Sprain, Dislocation, Neurovascular injury X-Ray, Labs, Meds, VS Vital Signs Date Time Temp Pulse Resp B/P (MAP) Pulse Ox O2 Delivery O2 Flow Rate FiO2 09/29/24 00:45 105 20 96 Room Air 09/29/24 00:45 98.7 105 20 134/78 (96) 96 98.7 09/28/24 21:35 98.0 100 18 138/77 (97) 100 Lab Test 09/29/24 01:28 09/28/24 23:36 Range/Units Lactic Acid Level 1.0 2.7 *H 0.4-2.0 mmol/L White Blood Count 9.3 4.4-10.8 10^3/uL Red Blood Count 4.50 4.5-5.90 10^6/uL Hemoglobin 13.8 13.5-17.5 g/dL Hematocrit 42.2 41.0-53.0 % Mean Corpuscular Volume 93.9 80.0-100.0 fL Mean Corpuscular Hemoglobin 30.6 28.0-32.0 pg Mean Corpuscular Hemoglobin Concent 32.6 32.0-36.0 g/dL Red Cell Distribution Width 14.5 H 11.8-14.3 % Platelet Count 309 140-450 10^3/uL Mean Platelet Volume 7.0 6.9-10.8 fL Neutrophils (%) (Auto) 55.9 37.0-80.0 % Lymphocytes (%) (Auto) 26.9 10.0-50.0 % Monocytes (%) (Auto) 10.7 0.0-12.0 % Eosinophils (%) (Auto) 5.4 0.0-7.0 % Basophils (%) (Auto) 1.1 0.0-2.0 % Neutrophils # (Auto) 5.2 1.6-8.6 10 ^3/uL Lymphocytes # (Auto) 2.5 0.4-5.4 10 ^3/uL Monocytes # (Auto) 1.0 0-1.3 10 ^3/uL Eosinophils # (Auto) 0.5 0-0.8 10 ^3/uL Basophils # (Auto) 0.1 0-0.2 10 ^3/uL Nucleated Red Blood Cells 0.0 % Sodium Level 142 136-145 mmol/L Potassium Level 4.4 3.5-5.1 mmol/L Chloride Level 107 98-107 mmol/L Carbon Dioxide Level 25 20-31 mmol/L Anion Gap 10 5-15 Blood Urea Nitrogen 21 9-23 mg/dL Creatinine 1.19 0.700-1.30 mg/dL Glomerular Filtration Rate Calc 74 >90 mL/min BUN/Creatinine Ratio 17.6 10.0-20.0 Serum Glucose 99 74-106 mg/dL Calcium Level 10.5 H 8.7-10.4 mg/dL Total Bilirubin 0.4 0.2-1.0 mg/dL Aspartate Amino Transferase (AST) 110 H 13-40 U/L Alanine Aminotransferase (ALT) 101 H 7-40 U/L Alkaline Phosphatase 62 46-116 U/L B-Type Natriuretic Peptide 15.67 0-100 pg/mL Total Protein 7.2 5.7-8.2 g/dL Albumin 4.7 3.2-4.8 g/dL Current Medications Medications (Trade) Dose Ordered Sig/Valorie Route Start Time Stop Time Status Last Admin Ibuprofen (Motrin Tablet) 800 mg ONCE ONCE PO 09/28/24 23:00 09/28/24 23:06 DC 09/29/24 00:30 Sodium Chloride 1,000 ml @ 1,000 mls/hr Q1H ONCE IV 09/29/24 00:30 09/29/24 01:29 DC 09/29/24 00:40 Acetaminophen/ Hydrocodone Bitart (Amberg 5/325MG Tab) 1 tab ONCE ONCE PO 09/29/24 01:00 09/29/24 01:01 DC 09/29/24 00:54 Vancomycin HCl 250 ml @ 150 mls/hr Q2H IV 09/29/24 02:00 09/29/24 05:39 09/29/24 02:09 X-Ray, Labs, Meds, VS Comment Right Tib/Fib and Ankle XR FINDINGS/IMPRESSION: Mildly displaced oblique fracture proximal fibula. The visualized joint space is well maintained. The alignment is anatomical. There is no radiopaque foreign body. MDM: Patient with history as above presented with right ankle pain. History obtained from patient. Patient was nontoxic, stable, afebrile, ambulatory, no acute distress. Exam as above. Labs reviewed. CBC did not show leukocytosis. No anemia. CMP did not show significant electrolyte abnormalities. Lactic acid elevated at 2.7. Independently reviewed imaging. X-ray of the right tib-fib and right ankle showed fracture of the proximal fibula. No fracture noted to the ankle. Reviewed external records. All findings were discussed with the patient. Differential diagnosis considered. Overall presentation is consistent with fibula fracture and cellulitis. Low suspicion for sepsis, abscess, dislocation, neurovascular injury, DVT Patient was treated with ibuprofen and Amberg with improvement in symptoms. Patient was given a dose of IV vancomycin in the ED to cover for MRSA. Patient was also given a bolus of IV fluids due to elevated lactic acid. Patient was reevaluated and vital signs were reviewed. Consideration was given for admission, but the patient was stable for outpatient management. Patient appears to be drug-seeking and only complains of pain re-evaluation. Otherwise the patient is noted to be in no acute distress and ambulatory. Based on chart review, patient does have a history of polysubstance abuse. Patient does seem to be intoxicated while in the ED. Patient will be prescribed antibiotics to cover for cellulitis. Disposition: Discussed the need to follow up diagnostics, including incidental findings. Discharged the patient with instructions to obtain outpatient follow up in 1-2 days of today's symptoms and findings, with strict return precautions if patient develops new or worsening symptoms. This medical document was created using the [employer] dictation system. Although this document has been carefully reviewed, there may still be some phonetic and typographical errors, which are due to imperfections of the software program, and do not reflect any compromise in the patient's medical care. Time of 1ST Reevaluation: 01:16 Reevaluation 1ST: Improved Time of 2ND Reevaluation: 02:47 Reevaluation 2ND: Improved Patient Education/Counseling: Diagnosis, Treatment, Prognosis, Need For Follow Up Family Education/Counseling: No Family Present Departure 1 Departure Time of Disposition: 02:47 Impression: Primary Impression: Right fibular fracture Qualified Codes: S82.831A - Other fracture of upper and lower end of right fibula, initial encounter for closed fracture Additional Impressions: Cellulitis of hand Polysubstance abuse Disposition: 01 HOME / SELF CARE / HOMELESS Condition: Fair e-Prescriptions Sulfamethoxazole W/Trimethopri (Bactrim Ds Tablet) 1 Tab Tb 1 TAB PO BID for 7 Days, #14 TAB Prov: TATYANA PANDYA 09/29/24 Critical Care Note Critical Care Time?: No Stability Stability form required: No Heart Score Heart Score: Heart Score Response (Comments) Value History N/A 0 EKG N/A 0 Age N/A 0 Risk Factors N/A 0 Troponin N/A 0 Total 0 TATYANA PANDYA Sep 28, 2024 23:35
[2024-09-28 23:51] LABS: Basophils # (auto) 0.1 10 ^3/uL (0-0.2); Basophils % (auto) 1.1 % (0.0-2.0); Eosinophils # (auto) 0.5 10 ^3/uL (0-0.8); Eosinophils % (auto) 5.4 % (0.0-7.0); Hematocrit 42.2 % (41.0-53.0); Hemoglobin 13.8 g/dL (13.5-17.5); Lymphocytes # (auto) 2.5 10 ^3/uL (0.4-5.4); Lymphocytes % (auto) 26.9 % (10.0-50.0); Mean Corpuscular Hemoglobin 30.6 pg (28.0-32.0); Mean Corpuscular Hgb Conc. 32.6 g/dL (32.0-36.0); Mean Corpuscular Volume 93.9 fL (80.0-100.0); Monocytes % (auto) 10.7 % (0.0-12.0); Neutrophils # (auto) 5.2 10 ^3/uL (1.6-8.6); Neutrophils % (auto) 55.9 % (37.0-80.0); Platelet Count (auto) 309 10^3/uL (140-450); Red Cell Distribution Width 14.5 % (11.8-14.3); White Blood Cell 9.3 10^3/uL (4.4-10.8)
[2024-09-29 00:09] LABS: Albumin 4.7 g/dL (3.2-4.8); Alkaline Phosphatase 62 U/L (46-116); Anion Gap 10 (5-15); BUN/Creatinine Ratio 17.6 (10.0-20.0); Bilirubin, Total 0.4 mg/dL (0.2-1.0); Blood Urea Nitrogen 21 mg/dL (9-23); Carbon Dioxide 25 mmol/L (20-31); Glucose 99 mg/dL (74-106); Potassium 4.4 mmol/L (3.5-5.1); Sodium 142 mmol/L (136-145); Total Protein 7.2 g/dL (5.7-8.2)
[2024-09-29 00:10] LABS: Alanine Aminotransferase 101 U/L (7-40); Aspartate Aminotransferase 110 U/L (13-40); Calcium 10.5 mg/dL (8.7-10.4); Chloride 107 mmol/L (98-107)
[2024-09-29 00:16] LABS: Lactic Acid w/Reflex 2.7 mmol/L (0.4-2.0)
[2024-09-29] MEDS: IBUPROFEN 800 MG TAB PO ONE (00:30)
[2024-09-29] MEDS: SODIUM CHLORIDE 0.9% 1,000 ML IV ONE (00:40)
[2024-09-29 00:45] VITALS: BP 134/78; PULSE 105; RESP 20; TEMP 98.7; O2SAT 96
[2024-09-29] MEDS: HYDROcodone-ACET 5/325MG TAB PO ONE (00:54)
[2024-09-29] MEDS ORDERED: VANCOMYCIN PER PHARMACY 0 MG IV SCH (01:15)
[2024-09-29] MEDS ORDERED: BACDST PO (01:18)
[2024-09-29] MEDS: VANCOMYCIN 1GM/250ML KIT 250 ML IV SCH (02:09)
--- NOTE | 2024-09-29 12:52 | DVH ---
Examination: RTBFB CLINICAL INDICATION:Hx of tib fib fracture COMPARISON: None. TECHNIQUE: Two views of right tibia and fibula were obtained. FINDINGS: Age indeterminate fracture proximal one third shaft of the fibula. Advised clinical correlation. The ankle mortise is well approximated. Knee joint alignment is within normal limits. The soft tissues are unremarkable. IMPRESSION: Age-indeterminate fracture proximal one third shaft of the fibula. Advised clinical correlation. Electronically Signed 09/29/2024 03:21 Venancio TORO
== END 2024-09-29 03:46 | disposition home or self-care (01) ==
LOC: EDBD 21:22 → ER 21:22
DX: S82.401A Unspecified fracture of shaft of right fibula, initial encounter for closed fracture (principal); L03.119 Cellulitis of unspecified part of limb; F19.10 Other psychoactive substance abuse, uncomplicated; F17.210 Nicotine dependence, cigarettes, uncomplicated; Z79.1 Long term (current) use of non-steroidal anti-inflammatories (NSAID); W19.XXXA Unspecified fall, initial encounter; Y93.89 Activity, other specified; Y92.89 Other specified places as the place of occurrence of the external cause; Y99.8 Other external cause status
CPT/HCPCS: 36415; 73590; 73610; 80053; 83605; 83880; 85025; 96361; 96365; 99284; J3370; J7030

== ENCOUNTER 2024-10-17 02:02 | Emergency (ER) | payer MEDICAID ==
[~2024-10-17] VITALS: Ht 177.8 cm; Wt 75.0 kg
[~2024-10-17 02:02] MED LIST changes: +BACDST PO; -IBUP-1455 PO
[2024-10-17] MEDS: SODIUM CHLORIDE 0.9% 1,000 ML IV ONE (02:45)
--- NOTE | 2024-10-17 02:56 | ED.PDOC ---
Altered Mental Status HPI Comments 49-year-old male came to emergency room via EMS for altered level of consciousness. Patient has history of polysubstance abuse and alcoholism. Patient used to be homeless but now resides at a board and care facility. Patient was seen laying face first on the ground and appears confused and disoriented afterwards. Patient brought to the ER for further evaluation and management Chief Complaint: ALOC Time Seen by MD: 02:55 Primary Care Provider: gurpreet Reviewed Notes: Nurses Notes, Tenter Notes Allergies: Coded Allergies: NO KNOWN ALLERGIES (Unverified , 07/01/19) Home Meds Active Scripts Sulfamethoxazole W/Trimethopri (Bactrim Ds Tablet) 1 Tab Tb, 1 TAB PO BID for 7 Days, #14 TAB Prov:TATYANA PANDYA PAC 09/29/24 Naloxone HCl (Narcan) 4 Mg/0.1 Ml Spr, 4 MG NA UD for 30 Days, #1 SPRAY Prov:LELA AGUILAR QUAD STAYER 09/26/24 Hydrocodone-Acetaminophen (Hydrocodone Bitartrate/AC 5-325 mg) 1 Tab Tab, 1 TAB PO Q8HPRN PRN for 5 Days, #15 TAB Prov:LELA AGUILAR QUAD STAYER 09/26/24 Ondansetron Odt 4MG Tab (ZOFRAN PO) 4 Mg Tb, 4 MG PO Q8HP PRN for 5 Days, #15 TAB ODT TAB-DISSOLVE IN MOUTH, THEN SWALLOW Prov:DARRIUS BHATT MD 08/26/24 Naloxone HCl (Narcan) 4 Mg/0.1 Ml Spr, 4 MG NA DAILY PRN for 4 Days, #4 SPRAY 2 Refills Prov:JULIANA QUINONEZ DO 04/24/23 Information Source: Patient, Emergency Med Personnel Mode of Arrival: EMS Severity: Unable to Care for Self Timing: Hours Duration: Since onset Quality: Decreased Alertness, Change in Behavior, Confusion Recent: Medication/Drug Abuse Review of Systems REVIEW OF SYSTEMS: No fever, no chills, or fatigue HEENT: No sore throat, no earache, no congestion, no neck pain. Cardiac: No chest pain. No palpitations. Lungs: No shortness of breath, no cough. GI: No nausea, no vomiting, no diarrhea, no constipation, no abdominal pain : No dysuria, frequency, or urgency. No hematuria. Musculoskeletal: No joint pain , no joint swelling, no extremity edema. Skin: No rash, no itching. Neuro: No headache, no dizziness, no weakness Vital Signs Vital Signs Date Time Temp Pulse Resp B/P (MAP) Pulse Ox O2 Delivery O2 Flow Rate FiO2 10/17/24 04:30 97 16 142/91 (108) 96 10/17/24 03:00 Room Air* 0 21 21 10/17/24 02:30 98.2 98.2 Physical Exam General: Awake, alert and disoriented. He keeps asking what is going on . Skin: Skin in warm, dry and intact. Appropriate color for ethnicity. Nailbeds pink with no cyanosis. HEENT: The head is normocephalic and atraumatic. Conjunctivae are clear without exudates or hemorrhage. Sclera is non-icteric. EOM are intact. Positive nystagmus. Eyelids are normal in appearance without swelling or lesions. Oral mucosa is pink and moist Neck: The neck is supple with normal range of motion. No JVD. Cardiac: Heart rate and rhythm are normal. No murmurs, gallops, or rubs are auscultated. Respiratory: No signs of respiratory distress. Lung sounds are clear in all lobe s bilaterally without rales, ronchi, or wheezes. Abdominal: Abdomen is soft, non-tender without distention. Bowel sounds are pr esent and normoactive in all four quadrants. Extremities: Upper and lower extremities are atraumatic in appearance without deformity or edema. Neurological: The patient is awake, alert and oriented to person, place, and time with normal speech. Speech is clear. There is no facial asymmetry. Patient appears distracted, has difficulty following commands. No weakness in the upper or lower extremities. Past Medical History PAST MEDICAL HISTORY: Denies Surgical History: Denies all surgeries Family History Family History: Reviewed,noncontributory to illness, Family hx of Cancer Social History Smoker: Cigarettes, Less Than 1 Pack/Day Alcohol: Heavy Drugs: Marijuana, Methamphetamine, Other Lives In: Assisted Care, Unobtainable Was a procedure done? Was a procedure done?: No Differential Diagnosis (ALOC) Differential Diagnosis: Dehydration, Hypoglycemia, Encephalopathy, Closed Head Injury, Drug Overdose, ETOH Intoxication X-Ray, Labs, Meds, VS Vital Signs Date Time Temp Pulse Resp B/P (MAP) Pulse Ox O2 Delivery O2 Flow Rate FiO2 10/17/24 04:30 97 16 142/91 (108) 96 10/17/24 04:00 88 10/17/24 03:00 97 16 96 Room Air* 0 21 21 10/17/24 02:30 98.2 73 14 159/97 (117) 95 98.2 10/17/24 02:07 83 10/17/24 02:02 98.6 92 16 158/96 (116) 96 Lab Test 10/17/24 04:30 10/17/24 02:54 10/17/24 02:19 Range/Units Urine Color Light-yellow Yellow Urine Clarity Clear Clear Urine pH 7.0 5.0-9.0 Urine Specific [place] 1.014 1.001-1.035 Urine Protein Negative Negative Urine Ketones Negative Negative Urine Blood Negative Negative /uL Urine Nitrite Negative Negative Urine Bilirubin Negative Negative Urine Urobilinogen Normal Negative mg/dL Urine Leukocyte Esterase Negative Negative /uL Urine RBC 1 0 - 3 /hpf Urine Microscopic WBC 1 0-3 /HPF Urine Squamous Epithelial Cells None seen <5 /hpf Urine Bacteria None seen None Seen /hpf Urine Glucose Normal Normal mg/dL Urine Opiates Screen Neg NEGATIVE Urine Fentanyl Screen Neg NEGATIVE Urine Barbiturates Screen Neg NEGATIVE Urine Phencyclidine Screen Pos NEGATIVE Urine Amphetamines Screen Pos NEGATIVE Urine Benzodiazepines Screen Neg NEGATIVE Urine Cocaine Screen Pos NEGATIVE Urine Cannabinoids Screen Pos NEGATIVE Ammonia 10 L 11-32 umol/L Troponin I High Sensitivity 4 </=54 ng/L White Blood Count 11.1 H 4.4-10.8 10^3/uL Red Blood Count 4.74 4.5-5.90 10^6/uL Hemoglobin 14.8 13.5-17.5 g/dL Hematocrit 44.6 41.0-53.0 % Mean Corpuscular Volume 94.1 80.0-100.0 fL Mean Corpuscular Hemoglobin 31.3 28.0-32.0 pg Mean Corpuscular Hemoglobin Concent 33.2 32.0-36.0 g/dL Red Cell Distribution Width 14.4 H 11.8-14.3 % Platelet Count 282 140-450 10^3/uL Mean Platelet Volume 7.7 6.9-10.8 fL Neutrophils (%) (Auto) 56.6 37.0-80.0 % Lymphocytes (%) (Auto) 27.6 10.0-50.0 % Monocytes (%) (Auto) 10.1 0.0-12.0 % Eosinophils (%) (Auto) 4.5 0.0-7.0 % Basophils (%) (Auto) 1.2 0.0-2.0 % Neutrophils # (Auto) 6.3 1.6-8.6 10 ^3/uL Lymphocytes # (Auto) 3.1 0.4-5.4 10 ^3/uL Monocytes # (Auto) 1.1 0-1.3 10 ^3/uL Eosinophils # (Auto) 0.5 0-0.8 10 ^3/uL Basophils # (Auto) 0.1 0-0.2 10 ^3/uL Nucleated Red Blood Cells 0.2 % Sodium Level 142 136-145 mmol/L Potassium Level 3.7 3.5-5.1 mmol/L Chloride Level 109 H 98-107 mmol/L Carbon Dioxide Level 24 20-31 mmol/L Anion Gap 9 5-15 Blood Urea Nitrogen 17 9-23 mg/dL Creatinine 1.04 0.700-1.30 mg/dL Glomerular Filtration Rate Calc 87 >90 mL/min BUN/Creatinine Ratio 16.3 10.0-20.0 Serum Glucose 96 74-106 mg/dL Calcium Level 9.8 8.7-10.4 mg/dL Total Bilirubin 0.4 0.2-1.0 mg/dL Aspartate Amino Transferase (AST) 27 13-40 U/L Alanine Aminotransferase (ALT) 29 7-40 U/L Alkaline Phosphatase 77 46-116 U/L Total Protein 7.2 5.7-8.2 g/dL Albumin 4.6 3.2-4.8 g/dL Plasma/Serum Blood Alcohol < 3.0 <10 mg/dL Current Medications Medications (Trade) Dose Ordered Sig/Valorie Route Start Time Stop Time Status Last Admin Sodium Chloride 1,000 ml @ 1,000 mls/hr Q1H ONCE IV 10/17/24 02:45 10/17/24 03:44 DC 10/17/24 02:45 EXAM: CT HEAD WITHOUT CONTRAST INDICATION: Altered mental status TECHNIQUE: CT of the head without intravenous contrast. Radiation Dose Information: CT Dose: CTDI volume is 56.2 mGy. Dose-length product is 1107.7 mGy*cm The dose indicators for CT are the volume Computed Tomography (CT) Dose Index (CTDIvol) and the Dose Length Product (DLP), and are measured in units of mGy and mGy-cm, respectively. These indicators are not patient dose, but values generated from the CT scanner acquisition factors. The report includes radiation exposure data for exposures received during this examination. COMPARISON: CT HEAD WITHOUT CONTRAST on DOS: 09/25/24, CT HEAD WITHOUT CONTRAST on DOS: 04/24/23 FINDINGS: There is no evidence of acute intracranial hemorrhage, extra-axial collection, mass effect, midline shift, herniation or hydrocephalus. The ventricles, sulci and cisterns are age appropriate. The calderon-white differentiation is intact. The visualized paranasal sinuses and mastoid air cells are clear. The surrounding soft tissues and osseous structures are unremarkable. IMPRESSION: 1. No acute intracranial abnormality. Time of 1ST Reevaluation: 02:49 Reevaluation 1ST: Unchanged Patient Education/Counseling: Diagnosis, Treatment Family Education/Counseling: No Family Present Departure 1 Departure Time of Disposition: 05:49 Impression: Primary Impression: Altered mental status Disposition: 30 STILL A PATIENT Condition: Stable Comments 49-year-old male who presented with altered mental status. Tox screen positive. Patient continues to be altered. Pending re-evaluation by Psychiatry in the morning. Critical Care Note Critical Care Time?: No Stability Stability form required: No Heart Score Heart Score: Heart Score Response (Comments) Value History N/A 0 EKG N/A 0 Age N/A 0 Risk Factors N/A 0 Troponin N/A 0 Total 0 I personally scribed for DAYANARA PAVON MD ([email or web address]) on 10/17/24 at 02:56. Electronically submitted by Freddy Garcia ([employer]). I personally scribed for DAYANARA PAVON MD ([email or web address]) on 10/17/24 at 04:22. Electronically submitted by Freddy Garcia ([employer]). DAYANARA PAVON MD Oct 17, 2024 02:56
[2024-10-17 03:00] VITALS: PULSE 97; RESP 16; O2SAT 96
[2024-10-17 03:08] LABS: Basophils # (auto) 0.1 10 ^3/uL (0-0.2); Basophils % (auto) 1.2 % (0.0-2.0); Eosinophils # (auto) 0.5 10 ^3/uL (0-0.8); Eosinophils % (auto) 4.5 % (0.0-7.0); Hematocrit 44.6 % (41.0-53.0); Hemoglobin 14.8 g/dL (13.5-17.5); Lymphocytes # (auto) 3.1 10 ^3/uL (0.4-5.4); Lymphocytes % (auto) 27.6 % (10.0-50.0); Mean Corpuscular Hemoglobin 31.3 pg (28.0-32.0); Mean Corpuscular Hgb Conc. 33.2 g/dL (32.0-36.0); Mean Corpuscular Volume 94.1 fL (80.0-100.0); Monocytes # (auto) 1.1 10 ^3/uL (0-1.3); Monocytes % (auto) 10.1 % (0.0-12.0); Neutrophils # (auto) 6.3 10 ^3/uL (1.6-8.6); Neutrophils % (auto) 56.6 % (37.0-80.0); Nucleated Red Blood Cells % 0.2 %; Platelet Count (auto) 282 10^3/uL (140-450); Red Blood Cells 4.74 10^6/uL (4.5-5.90); Red Cell Distribution Width 14.4 % (11.8-14.3); White Blood Cell 11.1 10^3/uL (4.4-10.8)
[2024-10-17 03:18] LABS: Alanine Aminotransferase 29 U/L (7-40); Albumin 4.6 g/dL (3.2-4.8); Alkaline Phosphatase 77 U/L (46-116); Anion Gap 9 (5-15); Aspartate Aminotransferase 27 U/L (13-40); BUN/Creatinine Ratio 16.3 (10.0-20.0); Bilirubin, Total 0.4 mg/dL (0.2-1.0); Blood Urea Nitrogen 17 mg/dL (9-23); Calcium 9.8 mg/dL (8.7-10.4); Carbon Dioxide 24 mmol/L (20-31); Glucose 96 mg/dL (74-106); Potassium 3.7 mmol/L (3.5-5.1); Sodium 142 mmol/L (136-145); Total Protein 7.2 g/dL (5.7-8.2)
[2024-10-17 03:21] LABS: Chloride 109 mmol/L (98-107)
--- NOTE | 2024-10-17 03:53 | DVH ---
EXAM: CT HEAD WITHOUT CONTRAST INDICATION: Altered mental status TECHNIQUE: CT of the head without intravenous contrast. Radiation Dose Information: CT Dose: CTDI volume is 56.2 mGy. Dose-length product is 1107.7 mGy*cm The dose indicators for CT are the volume Computed Tomography (CT) Dose Index (CTDIvol) and the Dose Length Product (DLP), and are measured in units of mGy and mGy-cm, respectively. These indicators are not patient dose, but values generated from the CT scanner acquisition factors. The report includes radiation exposure data for exposures received during this examination. COMPARISON: CT HEAD WITHOUT CONTRAST on DOS: 09/25/24, CT HEAD WITHOUT CONTRAST on DOS: 04/24/23 FINDINGS: There is no evidence of acute intracranial hemorrhage, extra-axial collection, mass effect, midline s hift, herniation or hydrocephalus. The ventricles, sulci and cisterns are age appropriate. The calderon-white differentiation is intact. The visualized paranasal sinuses and mastoid air cells are clear. The surrounding soft tissues and osseous structures are unremarkable. IMPRESSION: 1. No acute intracranial abnormality.
[2024-10-17 04:35] LABS: Urine Bacteria None Seen /hpf (None Seen)
--- NOTE | 2024-10-17 04:40 | ECG ---
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
[2024-10-17 04:41] LABS: Urine Blood Negative /uL (Negative); Urine Clarity Clear (Clear); Urine Color Light-Yellow (Yellow); Urine Protein, UAD Negative (Negative); Urine Specific Gravity 1.014 (1.001-1.035); Urine Squamous Epithelial Cell None Seen /hpf (<5); Urine Urobilinogen Normal (Negative); Urine WBC 1 /HPF (0-3)
[2024-10-17 04:55] LABS: Cannabinoid Screen, Urine Pos (NEGATIVE); Cocaine Screen, Urine Pos (NEGATIVE)
[2024-10-17 05:04] LABS: Amphetamine Screen, Urine Pos (NEGATIVE); Barbiturate Scree,Urine Neg (NEGATIVE); Benzodiazephine Screen, Urine Neg (NEGATIVE); Opiate Scree,Urine Neg (NEGATIVE); Phencyclidine Screen, Urine Pos (NEGATIVE)
[2024-10-17 07:45] VITALS: PULSE 90; RESP 16; TEMP 97.6; O2SAT 100
--- NOTE | 2024-10-17 09:10 | ED.PDOC ---
Departure 1 Departure Time of Disposition: 09:10 (Patient is now clinically sober and A&O x3 and like to go home. We will discharge patient home with outpatient follow up) Impression: Primary Impression: Altered mental status Qualified Codes: R41.82 - Altered mental status, unspecified Additional Impression: Polysubstance abuse Disposition: 01 HOME / SELF CARE / HOMELESS Condition: Stable Additional Instructions: Do not use drugs. There are resources to help you quit. You can call: [phone]-[employer] ([phone]) If your symptoms worsen or you have any other concerns please return to the emergency room. JARED ZHOU MD Oct 17, 2024 09:10
[2024-10-17 09:15] VITALS: BP 149/91; PULSE 80; RESP 16; O2SAT 100
== END 2024-10-17 09:22 | disposition home or self-care (01) ==
LOC: ER 02:02 → EDUNIT# 02:02 → EDBD 02:02 → ER 09:22
DX: R41.82 Altered mental status, unspecified (principal); F19.11 Other psychoactive substance abuse, in remission; F17.210 Nicotine dependence, cigarettes, uncomplicated
CPT/HCPCS: 36415; 70450; 80053; 80307; 80320; 81001; 82140; 84484; 85025; 93005; 96360; 99285; J7030

== ENCOUNTER 2024-10-29 04:10 | Emergency (ER) | payer MEDICAID ==
[~2024-10-29] VITALS: Ht 180.3 cm; Wt 86.2 kg
--- NOTE | 2024-10-29 06:44 | ED.PDOC ---
History of Present Illness HPI Comments 49M BIBA w/ no prior Hx associated top the c/c of and OD. Pt is a poor Hx and kept on saying "I need an X-ray of my rectum". Triage notes state"Pt states he smoked PCP(shirley dust), blacked out, and might have put other drugs in his rectum." Denies chills, fever, N/V/D, SOB, CP or no other associated symptoms, modifiers, recent injuries or sick contacts at this time. Chief Complaint: Overdose Time Seen by MD: 06:20 Primary Care Provider: gurpreet Reviewed Notes: Nurses Notes, Medications, Allergies Allergies: Coded Allergies: NO KNOWN ALLERGIES (Unverified , 07/01/19) Home Meds Active Scripts Sulfamethoxazole W/Trimethopri (Bactrim Ds Tablet) 1 Tab Tb, 1 TAB PO BID for 7 Days, #14 TAB Prov:TATYANA PANDYA PAC 09/29/24 Naloxone HCl (Narcan) 4 Mg/0.1 Ml Spr, 4 MG NA UD for 30 Days, #1 SPRAY Prov:LELA AGUILAR [employer] 09/26/24 Hydrocodone-Acetaminophen (Hydrocodone Bitartrate/AC 5-325 mg) 1 Tab Tab, 1 TAB PO Q8HPRN PRN for 5 Days, #15 TAB Prov:LELA AGUILAR [employer] 09/26/24 Ondansetron Odt 4MG Tab (ZOFRAN PO) 4 Mg Tb, 4 MG PO Q8HP PRN for 5 Days, #15 TAB ODT TAB-DISSOLVE IN MOUTH, THEN SWALLOW Prov:DARRIUS BHATT MD 08/26/24 Naloxone HCl (Narcan) 4 Mg/0.1 Ml Spr, 4 MG NA DAILY PRN for 4 Days, #4 SPRAY 2 Refills Prov:JULIANA QUINONEZ DO 04/24/23 Information Source: Patient Mode of Arrival: EMS Severity: Moderate Duration: Since onset Prehospital treatment: None Past Medical History PAST MEDICAL HISTORY: Denies Surgical History: Denies all surgeries Family History Family History: Reviewed,noncontributory to illness, Unknown Social History Smoker: Unknown Alcohol: Unknown Drugs: Other (PCP) Lives In: Assisted Care Constitutional: reports: others (OD); denies: chills, diaphoresis, fatigue, fever, malaise, sweats, weakness EENTM: denies: blurred vision, double vision, ear bleeding, ear discharge, ear drainage, ear pain, ear ringing, eye pain, eye redness, hearing loss, mouth pain, mouth swelling, nasal discharge, nose bleeding, nose congestion, nose pain, photophobia, tearing, throat pain, throat swelling, voice changes, others Respiratory: denies: cough, hemoptysis, orthopnea, SOB at rest, shortness of breath, SOB with excertion, stridor, wheezing, others Cardiovascular: denies: chest pain, dizzy spells, diaphoresis, Dyspnea on exertion, edema, irregular heart beat, left arm pain, lightheadedness, palpitations, PND, syncope, others Gastrointestinal: denies: abdomen distended, abdominal pain, blood streaked bowels, constipated, diarrhea, dysphagia, difficulty swallowing, hematemesis, melena, nausea, poor appetite, poor fluid intake, rectal bleeding, rectal pain, vomiting, others Genitourinary: denies: burning, dysuria, flank pain, frequency, hematuria, incontinence, penile discharge, penile sore, pain, testicle pain, testicle swelling, urgency, others Neurological: denies: dizziness, fainting, headache, left sided numbness, left sided weakness, numbness, paresthesia, pre-existing deficit, right sided numbness, right sided weakness, seizure, speech problems, tingling, tremors, weakness, others Musculoskeletal: denies: back pain, gout, joint pain, joint swelling, muscle pain, muscle stiffness, neck pain, others Integumetry: denies: bruises, change in color, change in hair/nails, dryness, laceration, lesions, lumps, rash, wounds, others Allergic/Immunocompromised: denies: Difficulty Healing, Frequent Infections, Hives, Itching, others Hematologic/Lymphatic: denies: anemia, blood clots, easy bleeding, easy bruising, swollen glands, others Endocrine: denies: excessive hunger, excessive sweating, excessive thirst, excessive urination, flushing, intolerance to cold, intolerance to heat, unexplained weight gain, unexplained weight loss, others Psychiatric: denies: anxiety, bipolar disorder, depression, hopeless, panic disorder, schizophrenia, sleepless, suicidal, others All Other Systems: Reviewed and Negative Physical Exam General Appearance: Moderate Distress, Normal HEENT: Normal ENT Inspection, Pharynx Normal, TMs Normal Neck: Full Range of Motion, Non-Tender, Normal, Normal Inspection Respiratory: Chest Non-Tender, Lungs Clear, No Accessory Muscle Use, No Respiratory Distress, Normal Breath Sounds Cardiovascular: No Edema, No JVD, No Murmur, No Gallop, Normal Peripheral Pulses, Regular Rate/Rhythm Breast Exam: Deferred Gastrointestinal: No Organomegaly, Non Tender, No Pulsatile Mass, Normal Bowel Sounds, Soft Genitalia: Deferred Pelvic: Deferred Rectal: Deferred Extremities: No calf tenderness, Normal capillary refill, Normal inspection, Normal range of motion, Non-tender, No pedal edema Musculoskeletal : Apperance: Normal Neurologic: Alert, battery charger tester II-XII nml as Tested, No Motor Deficits, Normal Affect, Normal Mood, No Sensory Deficits Cerebellar Function: Normal Reflexes: Normal Skin: Dry, Normal Color, Warm Peripheral Pulses: 3+ Radial (R), 3+ Radial (L) Lymphatic: No Adenopathy Was a procedure done? Was a procedure done?: No Differential Dx Considerations may include: Drug use Electrolyte imbalance X-Ray, Labs, Meds, VS Vital Signs Date Time Temp Pulse Resp B/P (MAP) Pulse Ox O2 Delivery O2 Flow Rate FiO2 10/29/24 12:41 97.8 83 16 120/62 (81) 97 97.8 10/29/24 09:59 Room Air* 0 21 10/29/24 07:52 85 20 129/79 (96) 100 10/29/24 04:25 97.8 98 18 147/54 (85) 100 97.8 Lab Test 10/29/24 11:51 10/29/24 06:25 Range/Units POC Glucose 104 70-106 mg/dl Plasma/Serum Blood Alcohol < 3.0 <10 mg/dL Patient alert. Drug use. Does not want to answering any questions. History of drug use. Vitals stable. No sign of any distress. Moving all extremities. Medically cleared. Psychiatric evaluation. Denies suicidal or homicidal ideation. Insists on going home. Was told to follow up with a psychiatrist. Was told to come back if there is any problem. Time of 1ST Reevaluation: 06:50 Reevaluation 1ST: Unchanged Patient Education/Counseling: Diagnosis, Treatment, Prognosis Family Education/Counseling: No Family Present Departure 1 Departure Time of Disposition: 06:45 Impression: Primary Impression: Drug use Disposition: HOME / SELF CARE / HOMELESS Condition: Good Discharged With: Self Critical Care Note Critical Care Time?: No Stability Stability form required: No Heart Score Heart Score: Heart Score Response (Comments) Value History N/A 0 EKG N/A 0 Age N/A 0 Risk Factors N/A 0 Troponin N/A 0 Total 0 I personally scribed for BYRON RICARDO MD ([email or web address]) on 10/29/24 at 06:43. Electronically submitted by Alexis Washington ([email or web address]). BYRON RICADRO MD Oct 29, 2024 06:43
--- NOTE | 2024-10-29 08:39 | DVH ---
Date: 10/29/2024 08:01 AM Examination: XY KUB ABDOMEN SINGLE VIEW History: PAIN, R/O FOREIGN OBJECT, RECTAL BLEEDING Comparison: None TECHNIQUE: Frontal views of the abdomen was obtained. FINDINGS: Bowel gas pattern is unremarkable. The lung bases are unremarkable. No acute osseous abnormality identified. No definite radiopaque foreign object. IMPRESSION: Nonobstructive bowel gas pattern. No definite radiopaque foreign object.
[2024-10-29 12:41] VITALS: BP 120/62; PULSE 83; RESP 16; TEMP 97.8; O2SAT 97
== END 2024-10-29 13:12 | disposition home or self-care (01) ==
LOC: ER 04:10 → EDBD 04:10 → ER 06:31
DX: F19.90 Other psychoactive substance use, unspecified, uncomplicated (principal); F17.200 Nicotine dependence, unspecified, uncomplicated; Z79.899 Other long term (current) drug therapy
CPT/HCPCS: 36415; 74018; 80320; 82947; 82962